=== PATIENT | female | born 1980 | race Caucasian/White ===

== ENCOUNTER → 2022-04-03 14:30 | Outpatient (BNVA) | payer OTHER, SELFPAY | PROVIDERS: PCP Internal Medicine; Visit Provider Physician Assistant | DX: S39.012A Strain of muscle, fascia and tendon of lower back, initial encounter (principal); X50.1XXA Overexertion from prolonged static or awkward postures, initial encounter | CPT/HCPCS: 72100; 99204 ==

== ENCOUNTER → 2022-04-08 09:17 | Outpatient (BNVA) | payer OTHER, SELFPAY | PROVIDERS: PCP Internal Medicine; Visit Provider Physician Assistant Medical | DX: S39.012D Strain of muscle, fascia and tendon of lower back, subsequent encounter (principal); X50.1XXA Overexertion from prolonged static or awkward postures, initial encounter | CPT/HCPCS: 99213 ==

== ENCOUNTER → 2022-04-11 08:40 | Outpatient (BNVA) | payer OTHER, SELFPAY | PROVIDERS: PCP Internal Medicine; Visit Provider Physician Assistant Medical | DX: S33.9XXA Sprain of unspecified parts of lumbar spine and pelvis, initial encounter (principal); X50.1XXA Overexertion from prolonged static or awkward postures, initial encounter; M54.17 Radiculopathy, lumbosacral region | CPT/HCPCS: 99213 ==

== ENCOUNTER → 2022-04-18 14:40 | Outpatient (BNVA) | payer OTHER, SELFPAY | PROVIDERS: PCP Internal Medicine; Visit Provider Physician Assistant Medical | DX: S33.9XXA Sprain of unspecified parts of lumbar spine and pelvis, initial encounter (principal); X50.1XXA Overexertion from prolonged static or awkward postures, initial encounter; M54.17 Radiculopathy, lumbosacral region | CPT/HCPCS: 99213 ==

== ENCOUNTER → 2022-05-14 08:32 | Outpatient (BNVA) | payer OTHER, SELFPAY | PROVIDERS: PCP Internal Medicine; Visit Provider Physician Assistant Medical | DX: S33.9XXD Sprain of unspecified parts of lumbar spine and pelvis, subsequent encounter (principal); X50.1XXD Overexertion from prolonged static or awkward postures, subsequent encounter; M53.3 Sacrococcygeal disorders, not elsewhere classified; M54.10 Radiculopathy, site unspecified | CPT/HCPCS: 99213 ==

== ENCOUNTER 2022-05-27 08:07 | Outpatient (REF) | payer OTHER, SELFPAY ==
--- NOTE | ~2022-05-27 | MR_ITS ---
EXAMINATION: MR LUMBAR SPINE WITHOUT AND WITH CONTRAST CLINICAL INFORMATION: 41-year-old with self-reported right low back pain radiating to the right buttock and anterior hip. History of fall. History of L5-S1 surgery 11/22/2020. COMPARISON: None TECHNIQUE: Multiplanar multisequence MR imaging of the lumbar spine was done prior to and following the administration of 6 mL of Gadavist. FINDINGS: CORONAL ALIGNMENT: Normal. SAGITTAL ALIGNMENT: Normal. LUMBOSACRAL JUNCTION: Normal. VERTEBRAL BODIES: Normal height. DISC SPACES AND ENDPLATES: Moderate disc space height loss at L5-S1 with disc desiccation, Schmorl's nodes and minor spondylosis. [id number] disc space height loss at L4-L5 with disc desiccation, Schmorl's nodes and minor endplate spurring. Remaining lumbar intervertebral discs demonstrate normal height and signal. There is slight disc space height loss with disc desiccation at T11-T12. SPINAL CANAL: No abnormal developmental findings. BONE MARROW: Mixed degenerative marrow signal changes noted along the endplates at L5-S1 with mild associated marrow enhancement corresponding to regions of edematous endplate change. Otherwise bone marrow signal intensity appears unremarkable. CONUS MEDULLARIS: Terminates at L1-L2. Morphology and signal is normal. No abnormal enhancement. INTRADURAL NERVE ROOTS: Within normal limits. No abnormal intradural enhancement. L5-S1: Mild concentric disc bulging is noted. There is nonspecific intradiscal T2 hyperintensity associated with intradiscal enhancement, likely postsurgical. No evidence for discitis osteomyelitis. There is enhancement of the dorsal annular fibers of the disc centrally and to the left of midline likely reflecting postoperative scarring. No recurrent disc herniations are identified and there is no definite neural impingement or spinal canal stenosis. No significant facet arthropathy or neural foraminal stenosis. L4-L5: Shallow central disc protrusion with a central enhancing transverse annular fissure with slight encroachment on the ventral dural sac. Minor facet arthrosis noted bilaterally. No significant canal or neural foraminal stenosis. T12-L1 through L3-L4: Normal disc contour. No facet arthrosis, canal or neural foraminal stenosis. PARASPINAL/RETROPERITONEAL: The paravertebral soft tissues appear unremarkable. MR/MR lumbar spine wo/w con IMPRESSION: 1. Postoperative and discogenic degenerative changes at L5-S1 without recurrent disc herniation and no significant canal or neural foraminal compromise. 2. Shallow broad-based central disc protrusion with an enhancing central annular fissure at L4-L5 and minor facet arthrosis without spinal canal or neural foraminal stenosis.
== END 2022-05-27 08:08 | disposition home or self-care (01) ==
LOC: HO.MRI 08:07
PROVIDERS: Visit Provider Internal Medicine
DX: S39.012D Strain of muscle, fascia and tendon of lower back, subsequent encounter (principal)
CPT/HCPCS: 72158; A9585

== ENCOUNTER → 2022-05-28 08:39 | Outpatient (BNVA) | payer OTHER, SELFPAY | PROVIDERS: PCP Internal Medicine; Visit Provider Physician Assistant Medical | DX: S33.9XXD Sprain of unspecified parts of lumbar spine and pelvis, subsequent encounter (principal); X50.1XXD Overexertion from prolonged static or awkward postures, subsequent encounter; M54.10 Radiculopathy, site unspecified; M53.3 Sacrococcygeal disorders, not elsewhere classified | CPT/HCPCS: 99213 ==

== ENCOUNTER → 2022-05-30 10:58 | Outpatient (BNVA) | payer OTHER, SELFPAY | PROVIDERS: PCP Internal Medicine; Visit Provider Physician Assistant Medical | DX: S33.9XXD Sprain of unspecified parts of lumbar spine and pelvis, subsequent encounter (principal); X50.1XXD Overexertion from prolonged static or awkward postures, subsequent encounter | CPT/HCPCS: 99213 ==

== ENCOUNTER → 2022-06-27 08:29 | Outpatient (BNVA) | payer OTHER, SELFPAY | PROVIDERS: PCP Internal Medicine; Visit Provider Physician Assistant Medical | DX: S39.012D Strain of muscle, fascia and tendon of lower back, subsequent encounter (principal); X50.1XXD Overexertion from prolonged static or awkward postures, subsequent encounter; M51.27 Other intervertebral disc displacement, lumbosacral region | CPT/HCPCS: 99213 ==

== ENCOUNTER 2022-06-27 16:14 | Outpatient (REF) | payer OTHER, SELFPAY ==
--- NOTE | ~2022-06-27 | XR_ITS ---
EXAMINATION: CR X-RAY PELVIS, BILATERAL HIPS AND SACROILIAC JOINTS CLINICAL INFORMATION: Pelvic pain. COMPARISON: None TECHNIQUE: A single view of the pelvis, 3 views of the sacroiliac joints and 2 views each of the bilateral hips were obtained. FINDINGS: There is no acute fracture or dislocation. The sacroiliac and hip joints are unremarkable. Mild degenerative changes are noted at the pubic symphysis. The bony pelvis is intact. The soft tissues are unremarkable. XR/XR sacroiliac joint min 3V IMPRESSION: 1. No significant degenerative changes associated with the bilateral sacroiliac and hip joints.
--- NOTE | ~2022-06-27 | XR_ITS ---
EXAMINATION: CR X-RAY PELVIS, BILATERAL HIPS AND SACROILIAC JOINTS CLINICAL INFORMATION: Pelvic pain. COMPARISON: None TECHNIQUE: A single view of the pelvis, 3 views of the sacroiliac joints and 2 views each of the bilateral hips were obtained. FINDINGS: There is no acute fracture or dislocation. The sacroiliac and hip joints are unremarkable. Mild degenerative changes are noted at the pubic symphysis. The bony pelvis is intact. The soft tissues are unremarkable. XR/XR hip BI w PEL1V IMPRESSION: 1. No significant degenerative changes associated with the bilateral sacroiliac and hip joints.
== END 2022-06-27 16:15 | disposition home or self-care (01) ==
LOC: HO.XRAY 16:14
PROVIDERS: PCP Internal Medicine; Visit Provider Nurse Practitioner Family
DX: M47.816 Spondylosis without myelopathy or radiculopathy, lumbar region (principal); M46.1 Sacroiliitis, not elsewhere classified; M53.3 Sacrococcygeal disorders, not elsewhere classified; M96.1 Postlaminectomy syndrome, not elsewhere classified
CPT/HCPCS: 72202; 73521; 99202

== ENCOUNTER 2022-07-02 09:48 | Outpatient (REF) | payer OTHER, SELFPAY ==
[2022-07-02 10:05] LABS: MANUAL DIFF FLAG NO
[2022-07-02 10:12] LABS: Basophils Percent Auto 0.5 % (0-2); Eosinophils Absolute Auto 0.1 X10*3/uL (0.0-0.4); Eosinophils Percent Auto 0.8 % (0-4); Hematocrit 38.5 % (37.0-47.0); Hemoglobin 12.7 g/dl (12.0-16.0); Imm Gran Abs Auto 0.01 X10*3/uL (0.00-0.03); Imm Gran Pct Auto 0.2 % (0.0-0.4); Lymphocytes Absolute Auto 1.8 X10*3/uL (1.2-4.9); Lymphocytes Percent Auto 27.4 % (20-40); Mean Corpuscular Hemoglobin 29.3 pg (27.0-33.0); Mean Corpuscular Volume 88.9 fL (80.0-98.0); Mean Platelet Volume 10.2 fL (9.4-12.3); Monocytes Absolute Auto 0.5 X10*3/uL (0.1-1.2); Monocytes Percent Auto 6.8 % (2-11); Neutrophils Absolute Auto 4.3 x10*3/uL (2.0-8.3); Neutrophils Percent Auto 64.3 % (45-73); Platelet Count 266 X10*3/uL (160-400); Red Blood Count 4.33 X10*6/uL (4.20-5.50); Red Cell Distribution Width 12.3 % (11.0-16.0); White Blood Count 6.6 X10*3/uL (4.8-10.8)
[2022-07-02 10:20] LABS: Blood Urea Nitrogen 13 mg/dL (9-16); Estimated Glomerular Filt Rate > 60
== END 2022-07-02 09:49 | disposition home or self-care (01) ==
LOC: HO.LAB 09:48
PROVIDERS: PCP Internal Medicine; Visit Provider Nurse Practitioner Family
DX: N94.9 Unspecified condition associated with female genital organs and menstrual cycle (principal)
CPT/HCPCS: 36415; 82565; 84520; 85025

== ENCOUNTER 2022-07-02 10:00 | Outpatient (RCR) | payer OTHER, SELFPAY ==
--- NOTE | 2022-04-16 13:11 | MHC.PT.EP ---
[facility] [place] Office [place] Office [place] Office [address] Sary Drake [address] [phone] F: [phone] F: [phone] F: [phone] F: [phone] Physical Therapy Plan of Care Date of Evaluation: Date of Surgery: November 2020 Diagnosis: lumbar strain/radiculopathy Assessment: Pt is a pleasant 41yo F who presents to PT with acute LBP. She presents to PT with current impairments in pain, decreased lumbar ROM, decreased core stability, decreased hip/glute strength, soft tissue restrictions and muscle tightness. She is TTP throughout lumbar vertebrae, R lumbar PS, QL, and glutes. She is limited functionally by prolonged sitting, transitional movements, prolonged standing, and laying flat. She is an excellent candidate for skilled PT in order to address current impairments to facilitate return to PLOF. She will be seen 2x/week for 4 weeks and will be reassessed at that time. Frequency and Duration: The patient will be seen 2x/week for 4 weeks Short Term Goals: Pt will be I with HEP to promote self management of symptoms Pt will demonstrate improvements in postural awareness throughout the day Barrel Handler Goals: Pt will tolerate standing > 30 min with minimal to no pain to assist with household tasks including cooking and laundry Pt will tolerate sitting > 30 min with proper posture with minimal to no pain Pt will demonstrate improvements in functional mobility as evidenced by statistically significant improvement in Modified Oswestry Low Back Pain Disability Questionnaire Treatment Plan: Modalities to reduce pain, spasms and effusion. Manual therapy to restore motion and function. Therapeutic exercise to improve strength and flexibility. Neuromuscular re-education for posture and balance. Therapeutic activities to return to functional activities of daily living. Electronically signed by: Nevaeh Meadows, PT, DPT Please sign and return to therapist. Thank you for your referral.
--- NOTE | 2022-07-09 13:59 | MHC.PT.DC ---
[facility] [place] Office [place] Office [place] Office [address] Sary Drake 140 [facility] [phone] F: [phone] F: [phone] F: [phone] F: [phone] Physical Therapy Discharge Report Diagnosis: lumbar strain/radiculopathy Date of Surgery: November 2020 Date of Evaluation: 04/15/22 Date of Discharge: 07/09/22 Treatments to Date: 11 Cancellations to Date: 4 No Shows to Date: Discharge Status: Improved Function Independent with HEP Discharge Summary: Pt was seen for PT from 04/15/22-07/02/22. She attended 11 PT sessions and her last attended appointment was 07/02/22. She continues to have pain with certain activities including bending and prolonged standing. Throughout her PT POC we discussed the importance of proper body mechanics and consistency of performing HEP to promote strength and endurance. Pt is I with HEP and is being D/C from skilled PT as she has reached a functional plateau. Electronically signed by: Nevaeh Meadows, PT, DPT Please sign and return to therapist. Thank you for your referral.
== END 2022-07-09 14:00 | disposition home or self-care (01) ==
LOC: HO.PT 10:00
PROVIDERS: Visit Provider Physician Assistant Medical
DX: S39.012D Strain of muscle, fascia and tendon of lower back, subsequent encounter (principal); M54.16 Radiculopathy, lumbar region
CPT/HCPCS: 97110; 97112; 97140; 97161

== ENCOUNTER 2022-07-23 14:58 | Outpatient (RCR) | payer OTHER, SELFPAY | END 2022-09-30 13:52 | disposition home or self-care (01) | LOC: HO.PT 14:58 | PROVIDERS: PCP Internal Medicine; Visit Provider Nurse Practitioner Family | DX: M96.1 Postlaminectomy syndrome, not elsewhere classified (principal); M53.3 Sacrococcygeal disorders, not elsewhere classified; M46.1 Sacroiliitis, not elsewhere classified; M47.816 Spondylosis without myelopathy or radiculopathy, lumbar region; N94.9 Unspecified condition associated with female genital organs and menstrual cycle ==

== ENCOUNTER 2022-07-26 15:41 | Outpatient (REF) | payer OTHER, SELFPAY ==
--- NOTE | ~2022-07-26 | MR_ITS ---
EXAMINATION: MR PELVIS WITHOUT AND WITH CONTRAST CLINICAL INFORMATION: Patient states pelvic pain and pressure with cramping unable to empty bladder. COMPARISON: 05/27/2022 lumbar spine MRI TECHNIQUE: Multiple routine MR sequences through the pelvis were obtained on a high-field 1.5 Britt magnet. Pre and postcontrast images were evaluated. 6 mL of Gadavist intravenous contrast was utilized without incident. FINDINGS: Uterus is anteroverted measuring 10.3 x 5.5 x 5.8 cm in size. Endometrial cavity is unremarkable for age measuring up to 0.6 cm in thickness. Junctional zone is thin and distinct. Physiologic changes seen within the adnexa. The left ovary measures 3.2 x 6 x 1.9 cm in size. The contralateral right ovary is more difficult to separate from adjacent bowel appears to measure 2.3 x 1.8 x 3.0 cm in size with a more prominent dominant 2.1 cm follicle. Trace physiologic free fluid in the dependent pelvis. Bladder is decompressed and unremarkable. Urethra and periurethral tissues unremarkable. Normal bone marrow signal. Symmetric muscle signal. MR/MR pelvis wo/w con IMPRESSION: Physiologic changes seen. No suspicious abnormality seen. Bladder is decompressed and grossly unremarkable.
== END 2022-07-26 15:42 | disposition home or self-care (01) ==
LOC: HO.MRI 15:41
PROVIDERS: Visit Provider Nurse Practitioner Family
DX: N94.9 Unspecified condition associated with female genital organs and menstrual cycle (principal); M46.1 Sacroiliitis, not elsewhere classified; M00.9 Pyogenic arthritis, unspecified
CPT/HCPCS: 72197; A9585

== ENCOUNTER → 2022-08-01 15:18 | Outpatient (BNVA) | payer OTHER, SELFPAY | PROVIDERS: PCP Internal Medicine; Visit Provider Physician Assistant Medical | DX: S39.012D Strain of muscle, fascia and tendon of lower back, subsequent encounter (principal); X50.1XXD Overexertion from prolonged static or awkward postures, subsequent encounter; M51.16 Intervertebral disc disorders with radiculopathy, lumbar region | CPT/HCPCS: 99213 ==

== ENCOUNTER → 2022-08-19 15:24 | Outpatient (BNVA) | payer OTHER, SELFPAY | PROVIDERS: PCP Internal Medicine; Visit Provider Physician Assistant Medical | DX: S33.9XXD Sprain of unspecified parts of lumbar spine and pelvis, subsequent encounter (principal); X50.1XXD Overexertion from prolonged static or awkward postures, subsequent encounter; M54.17 Radiculopathy, lumbosacral region | CPT/HCPCS: 99213 ==

== ENCOUNTER 2022-08-27 06:13 | Outpatient (REF) | payer OTHER, SELFPAY ==
--- NOTE | ~2022-08-27 | FL_ITS ---
EXAMINATION: XR FLUOROSCOPY WITH IMAGES CLINICAL INFORMATION: Right SI joint injection. COMPARISON: None. TECHNIQUE: Fluoroscopy performed by Dr. José Miguel Machuca. Fluoroscopy time: 0.1 minutes. Cumulative Dose: 2.61 mGy. DAP: 0.712 Gy-cm2. Images: 1. FINDINGS: Image demonstrates needle overlying the right sacroiliac joint with some contrast within adjacent soft tissues and probably within the right sacroiliac joint. FL/FL guidance in treatment room IMPRESSION: Intraoperative fluoroscopy for pain management procedure.
== END 2022-08-27 06:14 | disposition home or self-care (01) ==
LOC: CF 06:13
PROVIDERS: Visit Provider Anesthesiology
DX: M46.1 Sacroiliitis, not elsewhere classified (principal); M53.3 Sacrococcygeal disorders, not elsewhere classified
CPT/HCPCS: 27096; J2795; J3300

== ENCOUNTER → 2022-09-16 15:21 | Outpatient (BNVA) | payer OTHER, SELFPAY | PROVIDERS: PCP Internal Medicine; Visit Provider Physician Assistant Medical | DX: S33.9XXD Sprain of unspecified parts of lumbar spine and pelvis, subsequent encounter (principal); X50.1XXD Overexertion from prolonged static or awkward postures, subsequent encounter | CPT/HCPCS: 99213 ==

== ENCOUNTER 2022-10-01 16:05 | Outpatient (REF) | payer OTHER, SELFPAY ==
--- NOTE | ~2022-10-01 | XR_ITS ---
EXAMINATION: XR LUMBOSACRAL SPINE WITH OBLIQUES CLINICAL INFORMATION: Post laminectomy syndrome COMPARISON: Previous x-ray April 2022 TECHNIQUE: AP, flexion and extension, both oblique, and lateral views of the lumbar spine. Lateral view of the lumbosacral junction. FINDINGS: Bone alignment is normal. No fracture or dislocation. No instability on flexion-extension. Degenerative disc disease at L5-S1. Lower lumbar spine facet arthritis. No pars defect. Normal paraspinal soft tissues. XR/XR lumbar spine 6V w bending IMPRESSION: Degenerative disc disease at L5-S1 and lower lumbar spine facet arthritis.
== END 2022-10-01 16:06 | disposition home or self-care (01) ==
LOC: HO.XRAY 16:05
PROVIDERS: PCP Internal Medicine; Visit Provider Nurse Practitioner Family
DX: M47.816 Spondylosis without myelopathy or radiculopathy, lumbar region (principal); M96.1 Postlaminectomy syndrome, not elsewhere classified
CPT/HCPCS: 72114; 99212

== ENCOUNTER → 2022-10-21 15:25 | Outpatient (BNVA) | payer OTHER, SELFPAY | PROVIDERS: PCP Internal Medicine; Visit Provider Physician Assistant Medical | DX: S33.9XXD Sprain of unspecified parts of lumbar spine and pelvis, subsequent encounter (principal); X50.1XXD Overexertion from prolonged static or awkward postures, subsequent encounter | CPT/HCPCS: 99213 ==

== ENCOUNTER 2022-11-19 06:32 | Outpatient (REF) | payer OTHER, SELFPAY ==
--- NOTE | ~2022-11-19 | FL_ITS ---
EXAMINATION: XR FLUOROSCOPY WITH IMAGES CLINICAL INFORMATION: Spondylosis without myelopathy or radiculopathy, lumbar region COMPARISON: 10/01/2022 TECHNIQUE: Fluoroscopy Supervised By: Dr. Db Rosa. Fluoroscopy Time: 0.6. Cumulative Dose: 4.91 mGy. DAP: 1.34 Gycm2. Images: 6. FL/FL guidance in treatment room FINDINGS/IMPRESSION: Sequential fluoroscopic spot images show positioning of needles and contrast injection for pain management procedure.
== END 2022-11-19 06:33 | disposition home or self-care (01) ==
LOC: CF 06:32
PROVIDERS: Visit Provider Anesthesiology
DX: M96.1 Postlaminectomy syndrome, not elsewhere classified (principal); M47.816 Spondylosis without myelopathy or radiculopathy, lumbar region
CPT/HCPCS: 64493; 64494

== ENCOUNTER → 2022-11-21 10:10 | Outpatient (BNVA) | payer OTHER, SELFPAY | PROVIDERS: PCP Internal Medicine; Visit Provider Anesthesiology | DX: Z13.89 Encounter for screening for other disorder (principal) ==

== ENCOUNTER → 2022-11-26 14:28 | Outpatient (BNVA) | payer OTHER, SELFPAY | PROVIDERS: PCP Internal Medicine; Visit Provider Physician Assistant Medical | DX: M54.17 Radiculopathy, lumbosacral region (principal); M51.26 Other intervertebral disc displacement, lumbar region | CPT/HCPCS: 99213 ==

== ENCOUNTER → 2023-01-02 07:55 | Outpatient (BNVA) | payer OTHER, SELFPAY | PROVIDERS: PCP Internal Medicine; Visit Provider Physician Assistant Medical | DX: M54.17 Radiculopathy, lumbosacral region (principal); M51.26 Other intervertebral disc displacement, lumbar region | CPT/HCPCS: 99213 ==

== ENCOUNTER → 2023-02-11 14:57 | Outpatient (BNVA) | payer OTHER, SELFPAY | PROVIDERS: PCP Internal Medicine; Visit Provider Physician Assistant Medical | DX: M54.17 Radiculopathy, lumbosacral region (principal) | CPT/HCPCS: 99213 ==

== ENCOUNTER → 2023-03-06 13:39 | Outpatient (BNVA) | payer OTHER, SELFPAY | PROVIDERS: PCP Internal Medicine; Visit Provider Physician Assistant Medical | DX: S33.9XXD Sprain of unspecified parts of lumbar spine and pelvis, subsequent encounter (principal); X50.1XXD Overexertion from prolonged static or awkward postures, subsequent encounter | CPT/HCPCS: 99213 ==

== ENCOUNTER → 2023-03-18 14:11 | Outpatient (BNVA) | payer OTHER, SELFPAY | PROVIDERS: PCP Internal Medicine; Visit Provider Physician Assistant | DX: R10.2 Pelvic and perineal pain (principal) | CPT/HCPCS: 99212 ==

== ENCOUNTER → 2023-03-27 14:52 | Outpatient (BNVA) | payer OTHER, SELFPAY | PROVIDERS: PCP Internal Medicine; Visit Provider Physician Assistant Medical | DX: S33.9XXD Sprain of unspecified parts of lumbar spine and pelvis, subsequent encounter (principal); X50.1XXD Overexertion from prolonged static or awkward postures, subsequent encounter; M54.17 Radiculopathy, lumbosacral region | CPT/HCPCS: 99213 ==

== ENCOUNTER → 2023-05-01 14:43 | Outpatient (BNVA) | payer OTHER, SELFPAY | PROVIDERS: PCP Internal Medicine; Visit Provider Physician Assistant Medical | DX: S33.9XXA Sprain of unspecified parts of lumbar spine and pelvis, initial encounter (principal); X50.1XXD Overexertion from prolonged static or awkward postures, subsequent encounter | CPT/HCPCS: 99213 ==

== ENCOUNTER → 2023-06-19 09:45 | Outpatient (BNVA) | payer OTHER, SELFPAY | PROVIDERS: PCP Internal Medicine; Visit Provider Physician Assistant Medical | DX: M54.17 Radiculopathy, lumbosacral region (principal) | CPT/HCPCS: 99213 ==

== ENCOUNTER 2023-06-27 11:22 | Outpatient (AMB) | payer OTHER, SELFPAY ==
--- NOTE | 2023-06-27 11:27 | A.OFFVIS_ITS ---
Intake Vital Signs 06/27/23 11:30 Height 5 ft 6 in Weight 138 lb 2 oz BMI 22.3 BP 136/76 Blood Pressure Location Rt brachial Position Sitting Pulse 70 Pulse Source Pulse Oximeter Pulse Oximetry (%) 98 Oxygen Delivery Method Room Air Intake Visit Reasons: CONTINOUS BACK PAIN Intake Note: Pain today 02/10. 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 The foot pain is constant per patient. She also continues to endorse axial low back pain. 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 Pain interferes with her daily activities, functioning, mood, sleep and diminishes her quality of life. She reports undergoing hysterectomy in March for pelvic pain and this has been slowly healing. Patient is tearful as she reports conservative measures with activity modifications, lidocaine patches, extensive physical therapy, NSAIDs, and diagnostic injections have not improved her pain symptoms or improved her functioning. Patient also underwent Neurosurgical evaluation by Joseph MILLER who deemed patient non surgical and referred her for Orthopedic evaluation to rule out tendon injury on the lateral hip or gluteal muscle. Patient reports she was seen by Dr. Jones at [facility] who encouraged to continue her with core strengthening exercises and potential lumbar disc replacement surgery in near future. We will obtain that report for review. At this time, patient will continue with work restrictions and undergo lumbar CT scan to better evaluate her lumbar discs. Prior lumbar spine MRI showed moderate disc space height loss at L5-S1 with disc desiccation, Schmorl's nodes and minor spondylosis. [id number] disc space height loss at L4-L5 with disc desiccation, Schmorl's nodes and minor endplate spurring. Patient denies any fever, bowel or bladder incontinence, or saddle anesthesia. PRIOR 11/21/22: Patient is on the phone today to discuss the results of the bilateral diagnostic MBB L3- L4- L5. She reported that she felt no pain immediately after the injection. However she went home after the injection and she reported sleeping for 4 hours instead of staying awake and performing the movements and maneuvers which usially aggravate her chronic pain. I explained her today that we lost the validity of the diagnostic injection. Now I have to schedule her for the diagnostic #2 MBB . I will perform it with bupivacaine with addition of epinephrine. Right SIJ steroid injection on 08/27/22 Patient reports 20% pain relief for less than a week. She continues to endorse axial and right sided lower back pain, worse with lumbar extension and supine positioning. Patient also reports right lateral hip and groin discomfort. She has been followed by her ObGyn provider for vaginal bleeding for one month and underwent endometrial biopsy last Friday. Patient also reports her uterus has increased in size since last MRI imaging per her ObGyn provider. Patient denies any fever, unintentional weight loss, malaise, dizziness, numbness or tingling, weakness, radiation of pain to lower extremities, bowel or bladder incontinence, or saddle anesthesia. PRIOR: Patient presents today in the office to assess response to Right SIJ steroid injection on 08/27/[address] Machuca. Patient reports 20% pain relief for less than a week. She continues to endorse axial and right sided lower back pain, worse with lumbar extension and supine positioning. Patient also reports right lateral hip and groin discomfort. She has been followed by her ObGyn provider for vaginal bleeding for one month and underwent endometrial biopsy last Friday. Patient also reports her uterus has increased in size since last MRI imaging per her ObGyn provider. Patient denies any fever, unintentional weight loss, malaise, dizziness, numbness or tingling, weakness, radiation of pain to lower extremities, bowel or bladder incontinence, or saddle anesthesia. Past Procedures: 08/27/22: Right Therapeutic Steroid injection-20% pain relief <1 week. PRIOR: Patient presents today via telehealth encounter to discuss Pelvic MRI results. Pelvic MRI results were reviewed with patient today and noted for physiologic changes seen within the adnexa. No suspicious abnormality seen. Patient reports she has follow up with ObGYN on 09/12/22 and then plans to start Pelvic PT if cleared. Patient continues to report axial, right lower back pain that radiates to her right buttock and right lateral hip. She denies radiation to her lower extremities or numbness with tingling symptoms. Supine positioning is not tolerable due to pain. Her lumbar xray and MRI as well her previous exams were consistent with facetogenic and discogenic pain as well right sacroiliac pain components. Patient reports meloxicam has been mildly effective. She is interested to proceed with therapeutic right SIJ injection with local and consider diagnostic lumbar medial branch blocks after if SIJ injection will not be effective. PRIOR: Patient presents today via telehealth encounter to discuss recent x-ray results and medication review. Patient reports no relief of pain this meloxicam. She denies any side effects. It is patient continues to endorse right lower back pain, right buttock and hip pain there is walking or changing position from sitting to standing as well pain when getting out from the car. We reviewed her sacroiliac and hip xrays which showed no acute fracture or dislocation. The sacroiliac and hip joints are unremarkable. Mild degenerative changes are noted at the pubic symphysis. The bony pelvis is intact. Her lumbar spine xray on 04/03/22 was consistent with mild degenerative change of the L4-L5 and L5-S1 discs levels. We reviewed her most recent lumbar spine MRI at previous visit. Patient reports pubic pain and tenderness with palpation for a while which has significantly worsened after a recent twisting injury in April. She reports she has made OBGYN follow-up appointment after recent injury and will be seeing her OBGYN provider for that in September. Patient reports constant heavy pressure in her back, heaviness and bruising sensation with tenderness in the pubic symphysis area and pain during voiding and bowel movements. Patient reports using pillows between the legs duri ng the sleep which has been helpful but has not tried ice therapy for the area. She denies fever, chills, malaise, abdominal or groin pain, dizziness, numbness or tingling, weakness, bowel or bladder incontinence, or saddle anesthesia. PRIOR: Patient is a pleasant 41-year-old female who presents today for evaluation of low back pain. 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 Patient was referred to us by [employer] and this is Worker's Comp case, claim #[id number] and pillowcase cutter is Volodymyr Faulkner . At the end of April, while dealing with a difficult preschool child, patient states she fell in the classroom on her right side and developed pain in her right lower back and right buttock and hip. Initially she reports, the pain was radiating to her left thigh anteriorly but has stopped 2 days after the fall. She denies any numbness or tingling. Patient reports previous back surgery L5-S1 microdiscectomy on 11/22/[address] Almonte at [facility]. Denies previous back injections. Pain is described as aching, stabbing, sharp, shooting, and tearing sensations in the right low back and buttock this constant stiffness. Patient reports pain is interfering with his daily activities, functioning, social interactions, sleep and quality of life. She also reports shooting pain while sneezing or getting up from sitting position to standing or from lying down to getting up. Patient reports she has significant difficulty getting dressed, bending, leaning, pulling or twisting. She denies fever, chills, malaise, weight loss, abdominal or groin pain, dizziness, numbness or tingling, weakness, bowel or bladder incontinence, or saddle anesthesia. Ambulates with normal gait without assisting devices. Patient has started physical therapy and reports improved symptoms of walking and has completed 10 sessions so far. She reports no improvement of back symptoms with PT during prolonged sitting, standing, or walking or changing positions. Patient has been managing her pain is healed and ice therapy, lidocaine patches, prednisone, Tylenol, ibuprofen, and has also tried 2 different muscle relaxants which she notes significant sensitivity due to drowsiness. She denies previous chiropractic manipulation, massage, acupuncture or TENS unit. Patient reports small fiber neuropathy which has been confirmed by lumbar puncture at [facility] in a biopsy at [facility]. She was evaluated by rheumatology about 3 years ago for a question of ankylosing spondylitis. Patient also have seen the squaring shear operator at [facility] and reports that MS has been ruled out. EMG and nerve conduction studies previously done at [facility]. No results of EMG available today. Lumbar spine MRI was obtained on 05/27/2022 and showed postoperative and discogenic degenerative changes at L5-S1 without recurrent disc herniation and no significant canal or neural foraminal compromise. Shallow broad-based central disc protrusion with an enhancing central annular fissure at L4-L5 and minor facet arthrosis without spinal canal or neural foraminal stenosis. Prior to that, lumbar spine x-ray was not done but the results are not available today. No significant degenerative changes associated with the bilateral sacroiliac and hip joints per x-ray imaging obtained today. Patient has significant tenderness in the projection of right sacroiliac joint. [facility] Medical History Small fiber neuropathy Surgical History Hx of microdiscectomy (~11/22/20) Review of Systems Const All systems reviewed & are unremarkable except as noted in HPI and below Physical Exam Vital Signs: Last Vital Signs Pulse 70 06/27/23 11:30 BP 136/76 06/27/23 11:30 Pulse Ox 98 06/27/23 11:30 Oxygen Delivery Method Room Air 06/27/23 11:30 BMI result Body Mass Index 22.3 General: Appears afebrile. Alert and oriented. Mood and affect appropriate. Follows and participates in conversation appropriately. Respiratory effort is unlabored. Able to transition from sit to stand unassisted. Ambulates with bilaterally normal heel strike and toe off. Back/Spine/Pelvis Other: Lumbar extension and flexion with bending reproduce right low back and buttock pain. Reports constant pain in the sole of right foot. Demonstrates 5/5 strength of quadriceps bilaterally as well as flexion/dorsiflexion of bilateral feet against resistance. Straight leg rise with dorsiflexion reproduced right lateral hip and right buttock pain but no pain radiation below knee level. +2 patellar and achilles reflexes bilaterally. Facet loading test positive bilaterally. Judy signs, Christopher?s and Stinchfield tests are negative bilaterally. Right mild groin and lateral hip pain with external hip rotations on the right. No pain on left side of back or leg. Cervical Spine: cervical ROM normal and No Cervical spine tenderness Thoracic/Lumbar Spine: thoracic and lumbar spine normal to inspection, Thoracic/lumbar spine scar(s), Lasegue's sign negative, straight leg raise negative bilaterally, pain with thoraco-lumbar ROM, paraspinal muscle tenderness, No thoracic spinal tenderness and lumbar spinal tenderness at L4 and at L5 Pelvis: buttock tenderness (upper) on the right Sacroiliac joints: bilaterally nontender Results Reviewed Results Reviewed: MR PELVIS WITHOUT AND WITH CONTRAST 07/26/22 FINDINGS: Uterus is anteroverted measuring 10.3 x 5.5 x 5.8 cm in size. Endometrial cavity is unremarkable for age measuring up to 0.6 cm in thickness. Junctional zone is thin and distinct. Physiologic changes seen within the adnexa. The left ovary measures 3.2 x 6 x 1.9 cm in size. The contralateral right ovary is more difficult to separate from adjacent bowel appears to measure 2.3 x 1.8 x 3.0 cm in size with a more prominent dominant 2.1 cm follicle. Trace physiologic free fluid in the dependent pelvis. Bladder is decompressed and unremarkable. Urethra and periurethral tissues unremarkable. Normal bone marrow signal. Symmetric muscle signal. IMPRESSION: Physiologic changes seen. No suspicious abnormality seen. Bladder is decompressed and grossly unremarkable. CR X-RAY PELVIS, BILATERAL HIPS AND SACROILIAC JOINTS 06/27/22 FINDINGS: There is no acute fracture or dislocation. The sacroiliac and hip joints are unremarkable. Mild degenerative changes are noted at the pubic symphysis. The bony pelvis is intact. The soft tissues are unremarkable. IMPRESSION: No significant degenerative changes associated with the bilateral sacroiliac and hip joints. MR LUMBAR SPINE WITHOUT AND WITH CONTRAST 05/27/23 CLINICAL INFORMATION: 41-year-old with self-reported right low back pain radiating to the right buttock and anterior hip. History of fall. History of L5-S1 surgery 11/22/2020. COMPARISON: None TECHNIQUE: Multiplanar multisequence MR imaging of the lumbar spine was done prior to and following the administration of 6 mL of Gadavist. FINDINGS: CORONAL ALIGNMENT: Normal. SAGITTAL ALIGNMENT: Normal. LUMBOSACRAL JUNCTION: Normal. VERTEBRAL BODIES: Normal height. DISC SPACES AND ENDPLATES: Moderate disc space height loss at L5-S1 with disc desiccation, Schmorl's nodes and minor spondylosis. Vywq-af-rmflwijf disc space height loss at L4-L5 with disc desiccation, Schmorl's nodes and minor endplate spurring. Remaining lumbar intervertebral discs demonstrate normal height and signal. There is slight disc space height loss with disc desiccation at T11-T12. SPINAL CANAL: No abnormal developmental findings. BONE MARROW: Mixed degenerative marrow signal changes noted along the endplates at L5-S1 with mild associated marrow enhancement corresponding to regions of edematous endplate change. Otherwise bone marrow signal intensity appears unremarkable. CONUS MEDULLARIS: Terminates at L1-L2. Morphology and signal is normal. No abnormal enhancement. INTRADURAL NERVE ROOTS: Within normal limits. No abnormal intradural enhancement. L5-S1: Mild concentric disc bulging is noted. There is nonspecific intradiscal T2 hyperintensity associated with intradiscal enhancement, likely postsurgical. No evidence for discitis osteomyelitis. There is enhancement of the dorsal annular fibers of the disc centrally and to the left of midline likely reflecting postoperative scarring. No recurrent disc herniations are identified and there is no definite neural impingement or spinal canal stenosis. No significant facet arthropathy or neural foraminal stenosis. L4-L5: Shallow central disc protrusion with a central enhancing transverse annular fissure with slight encroachment on the ventral dural sac. Minor facet arthrosis noted bilaterally. No significant canal or neural foraminal stenosis. T12-L1 through L3-L4: Normal disc contour. No facet arthrosis, canal or neural foraminal stenosis. PARASPINAL/RETROPERITONEAL: The paravertebral soft tissues appear unremarkable. IMPRESSION: 1. Postoperative and discogenic degenerative changes at L5-S1 without recurrent disc herniation and no significant canal or neural foraminal compromise. 2. Shallow broad-based central disc protrusion with an enhancing central annular fissure at L4-L5 and minor facet arthrosis without spinal canal or neural foraminal stenosis. XR LUMBOSACRAL SPINE 04/03/22 CLINICAL INFORMATION: Twisting injury. Low back pain. Pain radiating down left leg FINDINGS: Lumbar vertebrae have normal height and alignment. No spondylolysis. There is minimal degenerative lipping at the anterior endplates of the L4-L5 and L5-S1 discs levels. Mild disc height narrowing at both of these disc levels. Sacroiliac joints are normal. IMPRESSION: 1. No acute abnormality. 2. Mild degenerative change of the L4-L5 and L5-S1 discs levels. Assessment & Plan Assessment & Plan (1) Lumbar radicular pain: Code(s): M54.16 - Radiculopathy, lumbar region (2) Discogenic lumbar pain: Code(s): M54.59 - Other low back pain (3) Lumbar spondylosis: Code(s): M47.816 - Spondylosis without myelopathy or radiculopathy, lumbar region Plan 1. Neurosurgical evaluation conducted on 03/18/23 reviewed, patient was deemed non surgical per Joseph MILLER. Patient also underwent Orthopedic evaluation at [facility] by Dr. Jones recently, we will request this evaluation for review. 2. Given ongoing low back pain with radicular symptoms to right buttock and right lateral hip without signiciant SIJ tenderness, but discogenic components, I will send patient for CT scan of lumbar spine to evaluate L4-L5 and L5-S1 discs. Prior lumbar spine MRI on 05/27/22 following her work related injury in April 03/2022 showed moderate disc space height loss at L5-S1 with disc desiccation, Schmorl's nodes and minor spondylosis. [id number] disc space height loss at L4-L5 with disc desiccation, Schmorl's nodes and minor endplate spurring. For these degenerative changes on the endplates, she might be good candidate for possible Intracept procedure. 3. Work note provided today at the end of visit to continue activity restrictions. All questions and concerns have been answered and patient verbalized aggrement with treatment plan. Follow up for CT scan results and sooner as needed. Orders: Orders CT lumbar spine wo/w IV con Today M54.16 - Radiculopathy, lumbar region, M54.59 - Other low back pain Coding Level of Care Code Est Pt Level 4 (71337) Diagnoses Lumbar radicular pain M54.16 Discogenic lumbar pain M54.59 Lumbar spondylosis M47.816
[2023-06-27 11:30] VITALS: BP 136/76; PULSE 70; O2SAT 98; BMI 22.3
== END 2023-06-27 12:05 | disposition home or self-care (01) ==
PROVIDERS: PCP Internal Medicine; Visit Provider Nurse Practitioner Family
DX: M54.16 Radiculopathy, lumbar region (principal); M54.59 Other low back pain; M47.816 Spondylosis without myelopathy or radiculopathy, lumbar region
CPT/HCPCS: 99214

== ENCOUNTER → 2023-06-27 11:22 | Outpatient (BNVA) | payer OTHER, SELFPAY | PROVIDERS: PCP Internal Medicine; Visit Provider Nurse Practitioner Family | DX: M47.26 Other spondylosis with radiculopathy, lumbar region (principal); M54.59 Other low back pain | CPT/HCPCS: 99212 ==

== ENCOUNTER 2023-07-18 16:08 | Outpatient (REF) | payer OTHER, SELFPAY ==
--- NOTE | ~2023-07-18 | CT_ITS ---
EXAMINATION: CT LUMBAR SPINE WITH/WITHOUT CONTRAST CLINICAL INFORMATION: Radiculopathy, history of L5-S1 discectomy COMPARISON: MRI lumbar spine 05/27/2022 TECHNIQUE: A multidetector CT acquisition of the lumbar spine is obtained for an following intravenous administration of 85 mL Omnipaque 350. This CT examination was performed using dose optimization techniques as appropriate, variously including the following: *Automated exposure control *Adjustment of mA and/or kV according to patient size (this includes techniques or standardized protocols for targeted exams where dose is matched to indication/reason for exam; i.e. extremities or head) *Use of iterative reconstruction technique DLP: 788.6 mGy-cm FINDINGS: Normal lumbar lordosis is preserved. No significant spondylolisthesis. Vertebral body heights are maintained. There is no suspicious osseous lesion. Redemonstrated moderate L5-S1 disc height loss with vacuum disc phenomenon and subchondral sclerosis/cystic change along the opposing endplates. Please not canal patency is not well assessed on this examination due to inherent limitations of CT without intrathecal contrast. Within these limitations, multilevel degenerative changes with level by level detail are as follows: L1-L2: No spinal canal or neural foraminal stenosis. L2-L3: Trace annular disc bulge. No spinal canal or neural foraminal stenosis. L3-L4: Trace annular disc bulge. No spinal canal or neural foraminal stenosis. L4-L5: Annular disc bulge and mild to moderate bilateral facet arthrosis with ligamentum flavum thickening. No spinal canal stenosis. Disc bulge approaches upon/abuts the traversing right greater than left L5 nerve roots in the subarticular zones. Mild right without significant left neural foraminal encroachment. Increased conspicuity/size of focal right lateral disc protrusion impressing upon the extraforaminal right L4 nerve root (image 76, series 4). L5-S1: Disc osteophyte complex with mild bilateral facet arthrosis. No spinal canal stenosis. Annular disc bulge impresses upon the traversing bilateral S1 nerve roots within the subarticular zones. Stable mild to moderate bilateral neural foraminal stenosis. No significant abnormalities of the paraspinal musculature. Limited evaluation of the intra-abdominal structures without significant abnormalities. The abdominal aorta is of normal contour and caliber. CT/CT lumbar spine wo/w IV con IMPRESSION: Mild lower lumbar spondylosis as above without significant spinal canal or neural foraminal stenosis at any level. Increased conspicuity/size of a right lateral disc protrusion impressing upon the extraforaminal right L4 nerve root. Stable mild to moderate bilateral L5-S1 neural foraminal stenosis.
[2023-07-18] MEDS: iohexoL 350 MG/ML 100 ML INFUS..BTL 85 ML IV (16:57)
== END 2023-07-18 16:09 | disposition home or self-care (01) ==
LOC: HO.CT 16:08
PROVIDERS: PCP Internal Medicine; Visit Provider Nurse Practitioner Family
DX: M54.16 Radiculopathy, lumbar region (principal); M54.59 Other low back pain
CPT/HCPCS: 72133; Q9967

== ENCOUNTER 2023-07-31 15:05 | Outpatient (AMB) | payer OTHER, SELFPAY ==
[2023-07-31 15:11] VITALS: BP 133/82; PULSE 73; O2SAT 98; BMI 22.3
--- NOTE | 2023-07-31 15:11 | A.OFFVIS_ITS ---
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 Patient continues to endorse right sided back pain with radicular symptoms into her right lower extremity. Pain wraps arounds her right side and into right lateral hip, anterior thigh and RLE laterally. She continues to reports persistent right foot and sole of right foot pain. 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 Recent CT scan results are noted below. For ongoing right low back pain with right radiculopathy, we will proceed with Right L4 and L5-S1 TFESI injections as next steps. Denies any fever, bowel or bladder incontinence, or saddle anesthesia. PRIOR: Patient presents today for follow up for low back pain with radiation into her right buttock and lateral right hip and into the sole of right foot. The foot pain is constant per patient. She also continues to endorse axial low back pain. 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 Pain interferes with her daily activities, functioning, mood, sleep and diminishes her quality of life. She reports undergoing hysterectomy in March for pelvic pain and this has been slowly healing. Patient is tearful as she reports conservative measures with activity modifications, lidocaine patches, extensive physical therapy, NSAIDs, and diagnostic injections have not improved her pain symptoms or improved her functioning. Patient also underwent Neurosurgical evaluation by Joseph MILLER who deemed patient non surgical and referred her for Orthopedic evaluation to rule out tendon injury on the lateral hip or gluteal muscle. Patient reports she was seen by Dr. Jones at [facility] who encouraged to continue her with core strengthening exercises and potential lumbar disc replacement surgery in near future. We will obtain that report for review. At this time, patient will continue with work restrictions and undergo lumbar CT scan to better evaluate her lumbar discs. Prior lumbar spine MRI showed moderate disc space height loss at L5-S1 with disc desiccation, Schmorl's nodes and minor spondylosis. Utla-ow-mcozwymp disc space height loss at L4-L5 with disc desiccation, Schmorl's nodes and minor endplate spurring. Patient denies any fever, bowel or bladder incontinence, or saddle anesthesia. PRIOR 11/21/22: Patient is on the phone today to discuss the results of the bilateral diagnostic MBB L3- L4- L5. She reported that she felt no pain immediately after the injection. However she went home after the injection and she reported sleeping for 4 hours instead of staying awake and performing the movements and maneuvers which usially aggravate her chronic pain. I explained her today that we lost the validity of the diagnostic injection. Now I have to schedule her for the diagnostic #2 MBB . I will perform it with bupivacaine with addition of epinephrine. Right SIJ steroid injection on 08/27/22 Patient reports 20% pain relief for less than a week. She continues to endorse axial and right sided lower back pain, worse with lumbar extension and supine positioning. Patient also reports right lateral hip and groin discomfort. She has been followed by her ObGyn provider for vaginal bleeding for one month and underwent endometrial biopsy last Friday. Patient also reports her uterus has increased in size since last MRI imaging per her ObGyn provider. Patient denies any fever, unintentional weight loss, malaise, dizziness, numbness or tingling, weakness, radiation of pain to lower extremities, bowel or bladder incontinence, or saddle anesthesia. PRIOR: Patient presents today in the office to assess response to Right SIJ steroid injection on 08/27/[address] Machuca. Patient reports 20% pain relief for less than a week. She continues to endorse axial and right sided lower back pain, worse with lumbar extension and supine positioning. Patient also reports right lateral hip and groin discomfort. She has been followed by her ObGyn provider for vaginal bleeding for one month and underwent endometrial biopsy last Friday. Patient also reports her uterus has increased in size since last MRI imaging per her ObGyn provider. Patient denies any fever, unintentional weight loss, malaise, dizziness, numbness or tingling, weakness, radiation of pain to lower extremities, bowel or bladder incontinence, or saddle anesthesia. Past Procedures: 08/27/22: Right Therapeutic Steroid inje ction-20% pain relief <1 week. PRIOR: Patient presents today via telehealth encounter to discuss Pelvic MRI results. Pelvic MRI results were reviewed with patient today and noted for physiologic changes seen within the adnexa. No suspicious abnormality seen. Patient reports she has follow up with ObGYN on 09/12/22 and then plans to start Pelvic PT if cleared. Patient continues to report axial, right lower back pain that radiates to her right buttock and right lateral hip. She denies radiation to her lower extremities or numbness with tingling symptoms. Supine positioning is not tolerable due to pain. Her lumbar xray and MRI as well her previous exams were consistent with facetogenic and discogenic pain as well right sacroiliac pain components. Patient reports meloxicam has been mildly effective. She is interested to proceed with therapeutic right SIJ injection with local and consider diagnostic lumbar medial branch blocks after if SIJ injection will not be effective. PRIOR: Patient presents today via telehealth encounter to discuss recent x-ray results and medication review. Patient reports no relief of pain this meloxicam. She denies any side effects. It is patient continues to endorse right lower back pain, right buttock and hip pain there is walking or changing position from sitting to standing as well pain when getting out from the car. We reviewed her sacroiliac and hip xrays which showed no acute fracture or dislocation. The sacroiliac and hip joints are unremarkable. Mild degenerative changes are noted at the pubic symphysis. The bony pelvis is intact. Her lumbar spine xray on 04/03/22 was consistent with mild degenerative change of the L4-L5 and L5-S1 discs levels. We reviewed her most recent lumbar spine MRI at previous visit. Patient reports pubic pain and tenderness with palpation for a while which has significantly worsened after a recent twisting injury in April. She reports she has made OBGYN follow-up appo intment after recent injury and will be seeing her OBGYN provider for that in September. Patient reports constant heavy pressure in her back, heaviness and bruising sensation with tenderness in the pubic symphysis area and pain during voiding and bowel movements. Patient reports using pillows between the legs during the sleep which has been helpful but has not tried ice therapy for the area. She denies fever, chills, malaise, abdominal or groin pain, dizziness, numbness or tingling, weakness, bowel or bladder incontinence, or saddle anesthesia. PRIOR: Patient is a pleasant 41-year-old female who presents today for evaluation of low back pain. 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 Patient was referred to us by [employer] and this is Worker's Comp case, claim #[id number] and protective services case worker is Volodymyr Kaushik . At the end of April, while dealing with a difficult preschool child, patient states she fell in the classroom on her right side and developed pain in her right lower back and right buttock and hip. Initially she reports, the pain was radiating to her left thigh anteriorly but has stopped 2 days after the fall. She denies any numbness or tingling. Patient reports previous back surgery L5-S1 microdiscectomy on 11/22/[address] Almonte at [facility]. Denies previous back injections. Pain is described as aching, stabbing, sharp, shooting, and tearing sensations in the right low back and buttock this constant stiffness. Patient reports pain is interfering with his daily activities, functioning, social interactions, sleep and quality of life. She also reports shooting pain while sneezing or getting up from sitting position to standing or from lying down to getting up. Patient reports she has significant difficulty getting dressed, bending, leaning, pulling or twisting. She denies fever, chills, malaise, weight loss, abdominal or groin pain, dizziness, numbness or tingling, weakness, bowel or bladder incontinence, or saddle anesthesia. Ambulates with normal gait without assisting devices. Patient has started physical therapy and reports improved symptoms of walking and has completed 10 sessions so far. She reports no improvement of back symptoms with PT during prolonged sitting, standing, or walking or changing positions. Patient has been managing her pain is healed and ice therapy, lidocaine patches, prednisone, Tylenol, ibuprofen, and has also tried 2 different muscle relaxants which she notes significant sensitivity due to drowsiness. She denies previous chiropractic manipulation, massage, acupuncture or TENS unit. Patient reports small fiber neuropathy which has been confirmed by lumbar puncture at [facility] in a biopsy at [facility]. She was evaluated by rheumatology about 3 years ago for a question of ankylosing spondylitis. Patient also have seen the railroad yard worker at [facility] and reports that MS has been ruled out. EMG and nerve conduction studies previously done at [facility]. No results of EMG available today. Lumbar spine MRI was obtained on 05/27/2022 and showed postoperative and discogenic degenerative changes at L5-S1 without recurrent disc herniation and no significant canal or neural foraminal compromise. Shallow broad-based central disc protrusion with an enhancing central annular fissure at L4-L5 and minor facet arthrosis without spinal canal or neural foraminal stenosis. Prior to that, lumbar spine x-ray was not done but the results are not available today. No significant degenerative changes associated with the bilateral sacroiliac and hip joints per x-ray imaging obtained today. Patient has significant tenderness in the projection of right sacroiliac joint. [facility] Medical History Small fiber neuropathy Surgical History Hx of microdiscectomy (~11/22/20) Review of Systems Const All systems reviewed & are unremarkable except as noted in HPI and below Physical Exam Vital Signs: Last Vital Signs Pulse 73 07/31/23 15:11 BP 133/82 07/31/23 15:11 Pulse Ox 98 07/31/23 15:11 Oxygen Delivery Method Room Air 07/31/23 15:11 BMI result Body Mass Index 22.3 General: Appears afebrile. Alert and oriented. Mood and affect appropriate. Follows and participates in conversation appropriately. Respiratory effort is unlabored. Able to transition from sit to stand unassisted. Ambulates with bilaterally normal heel strike and toe off. Back/Spine/Pelvis Other: Oswestry Low Back Pain Disability score is 23 (Moderate Disability) Limited lumbar ROM due to pain with extension and flexion with bending reproduce right low back and buttock pain. Demonstrates 5/5 strength of quadriceps bilaterally as well as flexion/dorsiflexion of bilateral feet against resistance. Straight leg rise with dorsiflexion reproduced right lateral hip and right buttock pain and sole of right foot. +1 right +2 left patellar and achilles reflexes bilaterally. Facet loading test positive bilaterally. Judy signs, Christopher?s and Stinchfield tests are equivocal on the right, negative on the left. Right mild groin and lateral hip pain with external hip rotations on the right. No pain on left side of back or leg. Cervical Spine: cervical ROM normal and No Cervical spine tenderness Thoracic/Lumbar Spine: thoracic and lumbar spine normal to inspection, T horacic/lumbar spine scar(s), Lasegue's sign positive on the right and diffuse, pain with thoraco-lumbar ROM, paraspinal muscle tenderness, No thoracic spinal tenderness and lumbar spinal tenderness at L4 and at L5 Pelvis: buttock tenderness on the right Sacroiliac joints: on the right tender to palpation and on the left nontender Results Reviewed Results Reviewed: CT LUMBAR SPINE WITH/WITHOUT CONTRAST 07/18/23 CLINICAL INFORMATION: Radiculopathy, history of L5-S1 discectomy COMPARISON: MRI lumbar spine 05/27/2022 FINDINGS: Normal lumbar lordosis is preserved. No significant spondylolisthesis. Vertebral body heights are maintained. There is no suspicious osseous lesion. Redemonstrated moderate L5-S1 disc height loss with vacuum disc phenomenon and subchondral sclerosis/cystic change along the opposing endplates. Please not canal patency is not well assessed on this examination due to inherent limitations of CT without intrathecal contrast. Within these limitations, multilevel degenerative changes with level by level detail are as follows: L1-L2: No spinal canal or neural foraminal stenosis. L2-L3: Trace annular disc bulge. No spinal canal or neural foraminal stenosis. L3-L4: Trace annular disc bulge. No spinal canal or neural foraminal stenosis. L4-L5: Annular disc bulge and mild to moderate bilateral facet arthrosis with ligamentum flavum thickening. No spinal canal stenosis. Disc bulge approaches upon/abuts the traversing right greater than left L5 nerve roots in the subarticular zones. Mild right without significant left neural foraminal encroachment. Increased conspicuity/size of focal right lateral disc protrusion impressing upon the extraforaminal right L4 nerve root (image 76, series 4). L5-S1: Disc osteophyte complex with mild bilateral facet arthrosis. No spinal canal stenosis. Annular disc bulge impresses upon the traversing bilateral S1 nerve roots within the subarticular zones. Stable mild to moderate bilateral neural foraminal stenosis. No significant abnormalities of the paraspinal musculature. Limited evaluation of the intra-abdominal structures without significant abnormalities. The abdominal aorta is of normal contour and caliber. IMPRESSION: Mild lower lumbar spondylosis as above without significant spinal canal or neural foraminal stenosis at any level. Increased conspicuity/size of a right lateral disc protrusion impressing upon the extraforaminal right L4 nerve root. Stable mild to moderate bilateral L5-S1 neural foraminal stenosis. Assessment & Plan Assessment & Plan (1) Lumbar post-laminectomy syndrome: Code(s): M96.1 - Postlaminectomy syndrome, not elsewhere classified (2) Lumbar spondylosis: Code(s): M47.816 - Spondylosis without myelopathy or radiculopathy, lumbar region (3) Sacroiliac joint pain: Code(s): M53.3 - Sacrococcygeal disorders, not elsewhere classified (4) Discogenic lumbar pain: Code(s): M54.59 - Other low back pain (5) Lumbar radicular pain: Code(s): M54.16 - Radiculopathy, lumbar region Plan Schedule Right L4 and Right L5-S1 TFESI with local and fluoroscopy for ongoing right radicular pain. All questions and concerns have been answered and patient agreed with the plan. Follow up after injections and sooner if needed. Justification for interventional therapy: ? Patient with average pain > 6/10 ? Patient has exhausted conservative therapy, NSAIDs, physical therapy and HEP ? Oswestry Low Back Pain Disability score is 23 (Moderate Disability) The risks, consequences, alternatives, and benefits of various treatment options were discussed with the patient in great detail, including conservative management, injections and procedures. Coding Level of Care Code Est Pt Level 4 (31265) Diagnoses Lumbar post-laminectomy syndrome M96.1 Lumbar spondylosis M47.816 Sacroiliac joint pain M53.3 Discogenic lumbar pain M54.59 Lumbar radicular pain M54.16
== END 2023-07-31 15:35 | disposition home or self-care (01) ==
PROVIDERS: PCP Internal Medicine; Visit Provider Nurse Practitioner Family
DX: M96.1 Postlaminectomy syndrome, not elsewhere classified (principal); M47.816 Spondylosis without myelopathy or radiculopathy, lumbar region; M53.3 Sacrococcygeal disorders, not elsewhere classified; M54.59 Other low back pain; M54.16 Radiculopathy, lumbar region
CPT/HCPCS: 99214

== ENCOUNTER → 2023-07-31 15:05 | Outpatient (BNVA) | payer OTHER, SELFPAY | PROVIDERS: PCP Internal Medicine; Visit Provider Nurse Practitioner Family | DX: M96.1 Postlaminectomy syndrome, not elsewhere classified (principal); M47.26 Other spondylosis with radiculopathy, lumbar region; M53.3 Sacrococcygeal disorders, not elsewhere classified; M54.59 Other low back pain | CPT/HCPCS: 99212 ==

== ENCOUNTER → 2023-08-04 15:00 | Outpatient (BNVA) | payer OTHER, SELFPAY | PROVIDERS: PCP Internal Medicine; Visit Provider Physician Assistant Medical | DX: S33.9XXD Sprain of unspecified parts of lumbar spine and pelvis, subsequent encounter (principal); X50.1XXD Overexertion from prolonged static or awkward postures, subsequent encounter; M54.16 Radiculopathy, lumbar region | CPT/HCPCS: 99213 ==

== ENCOUNTER 2023-08-19 07:16 | Outpatient (AMB) | payer OTHER, SELFPAY ==
[2023-08-19 07:26] VITALS: BP 134/86; PULSE 90; RESP 16; O2SAT 98; BMI 22.3
--- NOTE | 2023-08-19 07:26 | A.OFFVIS_ITS ---
Intake Vital Signs 08/19/23 07:26 08/19/23 08:22 Height 5 ft 6 in 5 ft 6 in Weight 138 lb 138 lb BMI 22.3 22.3 BP 134/86 128/70 Blood Pressure Location Rt brachial Rt brachial Position Sitting Sitting Respiration 16 16 Pulse 90 69 Pulse Source Pulse Oximeter Pulse Oximeter Pulse Oximetry (%) 98 99 Oxygen Delivery Method Room Air Room Air Comment Pre-Op post-op Intake Visit Reasons: R L4 AND L5-S1 TFESI/LOCAL Allergies anesthetics Adverse Reaction (Mild, Uncoded 08/19/23 08:24) Vomiting PFSH Medical History Small fiber neuropathy Surgical History (Updated 08/04/23 @ 15:54 by Georgiana Arroyo PA-C) Hx of hysterectomy Hx of microdiscectomy (~11/22/20) Physical Exam Vital Signs: Last Vital Signs Pulse 69 08/19/23 08:22 Resp 16 08/19/23 08:22 BP 128/70 08/19/23 08:22 Pulse Ox 99 08/19/23 08:22 Oxygen Delivery Method Room Air 08/19/23 08:22 BMI result Body Mass Index 22.3 Results Reviewed Results Reviewed: 08/19/23 07:24 Lidocaine HCl 2 % MPF [Xylocaine 2 % MPF] 5 ml .ROUTE .STK-MED ONE Triamcinolone Acetonide [Kenalog-40] 40 mg .ROUTE .STK-MED ONE iohexoL 300 MG/ML 100 ML [Omnipaque 300 MG/ML] 100 ml .ROUTE .STK-MED ONE Assessment & Plan Assessment & Plan (1) Lumbar post-laminectomy syndrome: Code(s): M96.1 - Postlaminectomy syndrome, not elsewhere classified (2) Lumbar spondylosis: Code(s): M47.816 - Spondylosis without myelopathy or radiculopathy, lumbar region (3) Sacroiliac joint pain: Code(s): M53.3 - Sacrococcygeal disorders, not elsewhere classified (4) Discogenic lumbar pain: Code(s): M54.59 - Other low back pain (5) Lumbar radicular pain: Code(s): M54.16 - Radiculopathy, lumbar region Plan: Transforaminal epidural steroid injection L5-S1 and L4-5 on the right. THE PATIENT CAME TO THE OPERATING ROOM AFTER OBTAINING INFORMED CONSENT. THE RISKS OF THE PROCEDURE WERE DELINEATED THE RISK OF BLEEDING INFECTION PERIPHERAL NERVE DAMAGE EPIDURAL HEMATOMA EPIDURAL ABSCESS AND OTHER UNSPECIFIED RISKS. THE PATIENT WAS POSITIONED PRONE ON THE OPERATING TABLE . TIME-OUT WAS OBTAINED DELINEATING CORRECT SIDE AND SITE OF THE PROCEDURE, PATIENT NAME AND DATE OF , NEED OF THE ANTIBIOTIC, RISK OF FIRE. The PATIENT PARTICIPATED IN THE TIME OUT PROCEDURE. LUMBAR AREA OF THE PATIENT WAS PREPPED WITH CHLORAPREP AND DRAPED WITH STERILE DRAPES, STERILELY DRAPED C-ARM WAS BROUGHT OVER THE OPERATING FIELD AND SQ PICTURE OF L5 VERTEBRA WAS DELINEATED ON THE SCREEN. C-ARM WAS TILTED 20? CEPHALAD AND 25 DEGREES TO THE RIGHT TO DEMONSTRATE THE MOST PROMINENT IMAGE OF THE SAP on THE RIGHT. THE LATERAL BORDER OF THE SAP PROJECTION TO THE SKIN WAS CHOSEN A STARTING POINT OF THE INJECTION. 22 GAUGE 5 IN SPINAL NEEDLE WAS INSERTED THROUGH THE SKIN AND STARTED TO ADVANCE TO THE FORAMINA IN ANTERIOR POSTERIOR, OBLIQUE AND LATERAL VIEWS IN TUNNEL VISION FASHION. WHEN ON LATERAL VIEW THE NEEDLE ENTERED THE MOST POSTERIOR AND INFERIOR PORTION OF THE FORAMINA INJECTION OF THE CONTRAST PERFORMED DELINEATING ANTERIOR EPIDURAL SPREAD OF THE CONTRAST. AFTER THAT TREATMENT SOLUTION CONTAINING 3 ML OF PRESERVATIVE-FREE LI DOCAINE 1% MIXED WITH KENALOG 40 MG WAS INJECTED INTO THE NEEDLE. UPON COMPLETION OF THE INJECTION THE NEEDLE WAS REMOVED AND STERILE DRESSING WAS APPLIED. THERE INJECTION WAS REPEATED AT THE LEVEL L4-L5 ON THE RIGHT IN THE SAME VERY FASHION ABOVE. PATIENT TOLERATED PROCEDURE WELL SHE WAS AWAKEN TAKEN OUTSIDE OF THE OPERATING ROOM TO PACU WHERE SHE RECOVERED UNEVENTFULLY. SHE WENT HOME WITHOUT IMMEDIATE COMPLICATIONS. Plan Schedule Right L4 and Right L5-S1 TFESI with local and fluoroscopy for ongoing right radicular pain. All questions and concerns have been answered and patient agreed with the plan. Follow up after injections and sooner if needed. Justification for interventional therapy: ? Patient with average pain > 6/10 ? Patient has exhausted conservative therapy, NSAIDs, physical therapy and HEP ? Oswestry Low Back Pain Disability score is 23 (Moderate Disability) The risks, consequences, alternatives, and benefits of various treatment options were discussed with the patient in great detail, including conservative management, injections and procedures. Orders: Orders FL guidance in treatment room Today M54.16 - Radiculopathy, lumbar region Coding Level of Care Code Procedure Only Diagnoses Lumbar post-laminectomy syndrome M96.1 Lumbar spondylosis M47.816 Sacroiliac joint pain M53.3 Discogenic lumbar pain M54.59 Lumbar radicular pain M54.16
[2023-08-19 08:22] VITALS: BP 128/70; PULSE 69; RESP 16; O2SAT 99; BMI 22.3
== END 2023-08-19 08:18 | disposition home or self-care (01) ==
LOC: HO.PMCPRC 07:16
PROVIDERS: PCP Internal Medicine; Visit Provider Anesthesiology
DX: M47.26 Other spondylosis with radiculopathy, lumbar region (principal); M53.3 Sacrococcygeal disorders, not elsewhere classified; M96.1 Postlaminectomy syndrome, not elsewhere classified
CPT/HCPCS: 64483; 64484

== ENCOUNTER → 2023-08-19 07:16 | Outpatient (BNVA) | payer OTHER, SELFPAY | PROVIDERS: PCP Internal Medicine; Visit Provider Anesthesiology | DX: M96.1 Postlaminectomy syndrome, not elsewhere classified (principal); M47.26 Other spondylosis with radiculopathy, lumbar region; M53.3 Sacrococcygeal disorders, not elsewhere classified; M54.59 Other low back pain | CPT/HCPCS: 64483; 64484 ==

== ENCOUNTER 2023-08-19 07:18 | Outpatient (REF) | payer OTHER, SELFPAY ==
--- NOTE | ~2023-08-19 | FL_ITS ---
EXAMINATION: XR FLUOROSCOPY WITH IMAGES CLINICAL INFORMATION: Radiculopathy, lumbar region. COMPARISON: None available. TECHNIQUE: Fluoroscopy Supervised By: Dr. José Miguel Machuca. Fluoroscopy Time: 0.7 minutes. Cumulative Dose: 4.52 mGy. DAP: 0.0786 Gycm2. Images: 2. FINDINGS: Images demonstrate needle placement and contrast injection adjacent to right lateral L4 and L5 vertebrae FL/FL guidance in treatment room IMPRESSION: Fluoroscopy guidance for pain management procedure
== END 2023-08-19 07:19 | disposition home or self-care (01) ==
LOC: CF 07:18
PROVIDERS: Visit Provider Anesthesiology
DX: M54.16 Radiculopathy, lumbar region (principal); M96.1 Postlaminectomy syndrome, not elsewhere classified; M47.816 Spondylosis without myelopathy or radiculopathy, lumbar region; M53.3 Sacrococcygeal disorders, not elsewhere classified; M54.59 Other low back pain
CPT/HCPCS: 64483; 64484; J3301; Q9967

== ENCOUNTER 2023-09-08 15:13 | Outpatient (AMB) | payer OTHER, SELFPAY ==
--- NOTE | 2023-09-08 15:25 | MHC.OFFVIS ---
Intake Vital Signs 09/08/23 15:28 Height 5 ft 6 in Weight 138 lb BMI 22.3 BP 126/80 Blood Pressure Location Lt brachial Position Sitting Respiration 14 Pulse 82 Pulse Source Pulse Oximeter Pulse Oximetry (%) 100 Oxygen Delivery Method Room Air Intake Visit Reasons: R L4 AND L5-S1 TFESI 08/19/23/confirmed Allergies anesthetics Adverse Reaction (Mild, Uncoded 08/19/23 08:24) Vomiting HPI HPI Comments History of Present Illness Details Loyda is back in my office after right L4-5 L5-S1 therapeutic epidural steroid injection transforaminal. She reports pain in the lumbar spine and sacral bone in the midline with radiation to the right. She reports that she has pain in the right foot however she is adamant that this is not connected to the pain in the back. She feels pain in the back increased but pain in the foot remains low or even non-existent. Therefore I doubt her pain can be called radiculopathy. She reports approximately 2 through 3 days of good pain relief. She reports that by the week from the procedure the pain came back. Therefore I cannot consider transforaminal ISABEL on the right a good pain relieve measure. This is not her pain generator. In the past we tried to do diagnostic medial branch block L3 L4-5 which unfortunately resulted in no conclusion because patient slept after the procedure. She received sedation for that procedure. We would need to schedule this procedure 1 more time. This time I will schedule it without anesthesia. I recommended her to apply lidocaine patches in the projection of the future injections and she receives no sedation this time. She will perform most painful maneuvers to aggravate her pain. I will evaluate her soon after the procedure. PRIOR 11/21/22: Patient is on the phone today to discuss the results of the bilateral diagnostic MBB L3- L4- L5. She reported that she felt no pain immediately after the injection. However she went home after the injection and she reported sleeping for 4 hours instead of staying awake and performing the movements and maneuvers which usially aggravate her chronic pain. I explained her today that we lost the validity of the diagnostic injection. Now I have to schedule her for the diagnostic #2 MBB . I will perform it with bupivacaine with addition of epinephrine. Right SIJ steroid injection on 08/27/22 Patient reports 20% pain relief for less than a week. She continues to endorse axial and right sided lower back pain, worse with lumbar extension and supine positioning. Patient also reports right lateral hip and groin discomfort. She has been followed by her ObGyn provider for vaginal bleeding for one month and underwent endometrial biopsy last Friday. Patient also reports her uterus has increased in size since last MRI imaging per her ObGyn provider. Patient denies any fever, unintentional weight loss, malaise, dizziness, numbness or tingling, weakness, radiation of pain to lower extremities, bowel or bladder incontinence, or saddle anesthesia. PRIOR: Patient presents today in the office to assess response to Right SIJ steroid injection on 08/27/[address] Machuca. Patient reports 20% pain relief for less than a week. She continues to endorse axial and right sided lower back pain, worse with lumbar extension and supine positioning. Patient also reports right lateral hip and groin discomfort. She has been followed by her ObGyn provider for vaginal bleeding for one month and underwent endometrial biopsy last Friday. Patient also reports her uterus has increased in size since last MRI imaging per her ObGyn provider. Patient denies any fever, unintentional weight loss, malaise, dizziness, numbness or tingling, weakness, radiation of pain to lower extremities, bowel or bladder incontinence, or saddle anesthesia. Past Procedures: 08/27/22: Right Therapeutic Steroid injection-20% pain relief <1 week. PRIOR: Patient presents today via telehealth encounter to discuss Pelvic MRI results. Pelvic MRI results were reviewed with patient today and noted for physiologic changes seen within the adnexa. No suspicious abnormality seen. Patient reports she has follow up with ObGYN on 09/12/22 and then plans to start Pelvic PT if cleared. Patient continues to report axial, right lower back pain that radiates to her right buttock and right lateral hip. She denies radiation to her lower extremities or numbness with tingling symptoms. Supine positioning is not tolerable due to pain. Her lumbar xray and MRI as well her previous exams were consistent with facetogenic and discogenic pain as well right sacroiliac pain components. Patient reports meloxicam has been mildly effective. She is interested to proceed with therapeutic right SIJ injection with local and consider diagnostic lumbar medial branch blocks after if SIJ injection will not be effective. PRIOR: Patient presents today via telehealth encounter to discuss recent x-ray results and medication review. Patient reports no relief of pain this meloxicam. She denies any side effects. It is patient continues to endorse right lower back pain, right buttock and hip pain there is walking or changing position from sitting to standing as well pain when getting out from the car. We reviewed her sacroiliac and hip xrays which showed no acute fracture or dislocation. The sacroiliac and hip joints are unremarkable. Mild degenerative changes are noted at the pubic symphysis. The bony pelvis is intact. Her lumbar spine xray on 04/03/22 was consistent with mild degenerative change of the L4-L5 and L5-S1 discs levels. We reviewed her most recent lumbar spine MRI at previous visit. Patient reports pubic pain and tenderness with palpation for a while which has significantly worsened after a recent twisting injury in April. She reports she has made OBGYN follow-up appointment after recent injury and will be seeing her OBGYN provider for that in September. Patient reports constant heavy pressure in her back, heaviness and bruising sensation with tenderness in the pubic symphysis area and pain during voiding and bowel movements. Patient reports using pillows between the legs during the sleep which has been helpful but has not tried ice therapy for the area. She denies fever, chills, malaise, abdominal or groin pain, dizziness, numbness or tingling, weakness, bowel or bladder incontinence, or saddle anesthesia. PRIOR: Patient is a pleasant 41-year-old female who presents today for evaluation of low back pain. 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 Patient was referred to us by [employer] and this is Worker's Comp case, claim #[id number] and case reviewer is Volodymyr Faulkner . At the end of April, while dealing with a difficult preschool child, patient states she fell in the classroom on her right side and developed pain in her right lower back and right buttock and hip. Initially she reports, the pain was radiating to her left thigh anteriorly but has stopped 2 days after the fall. She denies any numbness or tingling. Patient reports previous back surgery L5-S1 microdiscectomy on 11/22/[address] Almonte at [facility]. Denies previous back injections. Pain is described as aching, stabbing, sharp, shooting, and tearing sensations in the right low back and buttock this constant stiffness. Patient reports pain is interfering with his daily activities, functioning, social interactions, sleep and quality of life. She also reports shooting pain while sneezing or getting up from sitting position to standing or from lying down to getting up. Patient reports she has significant difficulty getting dressed, bending, leaning, pulling or twisting. She denies fever, chills, malaise, weight loss, abdominal or groin pain, dizziness, numbness or tingling, weakness, bowel or bladder incontinence, or saddle anesthesia. Ambulates with normal gait without assisting devices. Patient has started physical therapy and reports improved symptoms of walking and has completed 10 sessions so far. She reports no improvement of back symptoms with PT during prolonged sitting, standing, or walking or changing positions. Patient has been managing her pain is healed and ice therapy, lidocaine patches, prednisone, Tylenol, ibuprofen, and has also tried 2 different muscle relaxants which she notes significant sensitivity due to drowsiness. She denies previous chiropractic manipulation, massage, acupuncture or TENS unit. Patient reports small fiber neuropathy which has been confirmed by lumbar puncture at [facility] in a biopsy at [facility]. She was evaluated by rheumatology about 3 years ago for a question of ankylosing spondylitis. Patient also have seen the inventory control manager at [facility] and reports that MS has been ruled out. EMG and nerve conduction studies previously done at [facility]. No results of EMG available today. Lumbar spine MRI was obtained on 05/27/2022 and showed postoperative and discogenic degenerative changes at L5-S1 without recurrent disc herniation and no significant canal or neural foraminal compromise. Shallow broad-based central disc protrusion with an enhancing central annular fissure at L4-L5 and minor facet arthrosis without spinal canal or neural foraminal stenosis. Prior to that, lumbar spine x-ray was not done but the results are not available today. No significant degenerative changes associated with the bilateral sacroiliac and hip joints per x-ray imaging obtained today. Patient has significant tenderness in the projection of right sacroiliac joint. [facility] Medical History (Updated 09/08/23 @ 16:08 by José Miguel Machuca MD) Small fiber neuropathy Surgical History (Updated 08/04/23 @ 15:54 by Georgiana M May, PA-C) Hx of hysterectomy Hx of microdiscectomy (~11/22/20) Review of Systems Const All systems reviewed & are unremarkable except as noted in HPI and below ENT Reports Normal hearing present Neuro Reports Normal hearing present, Denies Abnormal speech present, Denies confusion and Denies Sensory deficit (Neuro) Psych Denies confusion Physical Exam Vital Signs: Last Vital Signs Pulse 82 09/08/23 15:28 Resp 14 09/08/23 15:28 BP 126/80 09/08/23 15:28 Pulse Ox 100 09/08/23 15:28 Oxygen Delivery Method Room Air 09/08/23 15:28 BMI result Body Mass Index 22.3 Const General: no acute distress; No confusion Orientation/consciousness: patient oriented x3 and No confusion Eyes General: appearance normal, both eyes and all related structures Pupils: Equal, round and reactive pupils present EOM: EOMs intact bilaterally Neck Neck: Yes full ROM Chest Chest palpation & inspection: normal inspection of the chest Resp Effort & Inspection: normal respiratory effort, able to speak in complete sentences, normal respiratory pattern, no audible wheezes and no cough Cardio Jugular venous distension: no JVD GI Inspection: Yes normal to inspection Back/Spine/Pelvis Other: Christopher test Gaenslen test, pelvic compression test and pelvic destruction test are all negative for sacroiliac joint pathology. Lateral rotation of the right hip negative for pain increase in the groin or in the hip. SLR is negative bilaterally. Tenderness on palpation of midline spinal region approximately at the level of L4-L5 and S1. Loading test is positive bilaterally and more on the right. Flexing forward and flexing backwards aggravates her pain. She cannot make the decision whether or not 1 of them aggravate her pain stronger than the other. She denies pelvic organ dysfunction. She denies Valsalva maneuver aggravating her pain. Neuro General: patient oriented x3, gait normal and No confusion Cranial nerves: Yes CN's II-XII intact bilaterally, Yes Equal, round and reactive pupils present, Yes Normal hearing present and Yes Ability to bilaterally elevate shoulders present Speech: No Abnormal speech present Gait exam (Neuro): Normal gait present Motor exam (neuro): 5/5 motor strength present throughout Sensory Exam: No Sensory deficit (Neuro) Extrem General: No pedal edema Psych Speech and movement: Normal speech and movement present Affect: normal affect Attitude: cooperative Thought process: Normal thought process present Thought content: Normal thought content present Insight: Good insight present (Psych) Judgement: Good judgement present (Psych) Assessment & Plan Assessment & Plan (1) Lumbar post-laminectomy syndrome: Code(s): M96.1 - Postlaminectomy syndrome, not elsewhere classified (2) Lumbar spondylosis: Code(s): M47.816 - Spondylosis without myelopathy or radiculopathy, lumbar region (3) Sacroiliac joint pain: Code(s): M53.3 - Sacrococcygeal disorders, not elsewhere classified (4) Sacroiliitis: Code(s): M46.1 - Sacroiliitis, not elsewhere classified (5) Discogenic lumbar pain: Code(s): M54.59 - Other low back pain (6) Lumbar radicular pain: Code(s): M54.16 - Radiculopathy, lumbar region (7) Spondylosis of lumbar region without myelopathy or radiculopathy: Code(s): M47.816 - Spondylosis without myelopathy or radiculopathy, lumbar region Plan Lumbar spine xray with oblique view to assess degree of degenerative changes.She slept after diagnostic MBB and now the injection is invalid as a diagnostic procedure. Transforaminal epidural steroid injection L4-5 L5-S1 on the right was not effective for pain control. I will schedule her for diagnostic 2. Medial branch block with bupivacaine and epinephrine. Will do it with help of lidocaine patch and without any sedation. Justification for interventional therapy: ? Patient with average pain > 6/10 ? Patient has exhausted conservative therapy, NSAIDs, physical therapy The risks, consequences, alternatives, and benefits of various treatment options were discussed with the patient in great detail, including conservative management, injections and procedures. Coding Level of Care Code Est Pt Level 3 (07763) Diagnoses Lumbar post-laminectomy syndrome M96.1 Lumbar spondylosis M47.816 Sacroiliac joint pain M53.3 Sacroiliitis M46.1 Discogenic lumbar pain M54.59 Lumbar radicular pain M54.16 Spondylosis of lumbar region without myelopathy or radiculopathy M47.816
[2023-09-08 15:28] VITALS: BP 126/80; PULSE 82; RESP 14; O2SAT 100; BMI 22.3
== END 2023-09-08 15:57 | disposition home or self-care (01) ==
PROVIDERS: PCP Internal Medicine; Visit Provider Anesthesiology
DX: M96.1 Postlaminectomy syndrome, not elsewhere classified (principal); M47.816 Spondylosis without myelopathy or radiculopathy, lumbar region; M53.3 Sacrococcygeal disorders, not elsewhere classified; M46.1 Sacroiliitis, not elsewhere classified; M54.59 Other low back pain; M54.16 Radiculopathy, lumbar region
CPT/HCPCS: 99214

== ENCOUNTER → 2023-09-08 15:13 | Outpatient (BNVA) | payer OTHER, SELFPAY | PROVIDERS: PCP Internal Medicine; Visit Provider Anesthesiology | DX: M96.1 Postlaminectomy syndrome, not elsewhere classified (principal); M47.26 Other spondylosis with radiculopathy, lumbar region; M54.59 Other low back pain; M53.3 Sacrococcygeal disorders, not elsewhere classified; M46.1 Sacroiliitis, not elsewhere classified | CPT/HCPCS: 99212 ==

== ENCOUNTER → 2023-09-15 14:01 | Outpatient (BNVA) | payer OTHER, SELFPAY | PROVIDERS: PCP Internal Medicine; Visit Provider Physician Assistant Medical | DX: S39.012D Strain of muscle, fascia and tendon of lower back, subsequent encounter (principal); Y04.2XXD Assault by strike against or bumped into by another person, subsequent encounter; M54.17 Radiculopathy, lumbosacral region | CPT/HCPCS: 99213 ==

== ENCOUNTER 2023-10-14 06:04 | Outpatient (REF) | payer OTHER, SELFPAY ==
--- NOTE | ~2023-10-14 | FL_ITS ---
EXAMINATION: XR FLUOROSCOPY WITH IMAGES CLINICAL INFORMATION: Spondylosis without myelopathy or radiculopathy, lumbar region. COMPARISON: None available. TECHNIQUE: Fluoroscopy Supervised By: Dr. José Miguel Machuca. Fluoroscopy Time: 0.5 minutes. Cumulative Dose: 4.48 mGy. DAP: 0.0715 Gycm2. Images: 6. FINDINGS: Images demonstrate needle placement and contrast injection adjacent to the bilateral lateral L3, L4 and L5 vertebrae FL/FL guidance in treatment room IMPRESSION: Fluoroscopic guidance for pain management procedure.
== END 2023-10-14 06:05 | disposition home or self-care (01) ==
LOC: CF 06:04
PROVIDERS: Visit Provider Anesthesiology
DX: M47.816 Spondylosis without myelopathy or radiculopathy, lumbar region (principal)
CPT/HCPCS: 64493; 64494; Q9967

== ENCOUNTER 2023-10-14 07:24 | Outpatient (AMB) | payer OTHER, SELFPAY ==
[2023-10-14 07:33] VITALS: BP 130/82; PULSE 101; RESP 18; O2SAT 99; BMI 22.3
--- NOTE | 2023-10-14 07:33 | MHC.OFFVIS ---
Intake Vital Signs 10/14/23 07:33 10/14/23 08:44 Height 5 ft 6 in 5 ft 6 in Weight 138 lb 138 lb BMI 22.3 22.3 BP 130/82 124/82 Blood Pressure Location Lt brachial Lt brachial Position Sitting Sitting Respiration 18 18 Pulse 101 H 87 Pulse Source Pulse Oximeter Pulse Oximeter Pulse Oximetry (%) 99 100 Oxygen Delivery Method Room Air Room Air Comment Pre-Op post-op Intake Visit Reasons: BILAT L3-L4-DRL5 DX MBB W/BUPI AND EPI Allergies anesthetics Adverse Reaction (Mild, Uncoded 08/19/23 08:24) Vomiting [facility] Medical History (Updated 09/08/23 @ 16:08 by José Miguel Machuca MD) Small fiber neuropathy Surgical History (Updated 08/04/23 @ 15:54 by Georgiana Arroyo PA-C) Hx of hysterectomy Hx of microdiscectomy (~11/22/20) Physical Exam Vital Signs: Last Vital Signs Pulse 87 10/14/23 08:44 Resp 18 10/14/23 08:44 BP 124/82 10/14/23 08:44 Pulse Ox 100 10/14/23 08:44 Oxygen Delivery Method Room Air 10/14/23 08:44 BMI result Body Mass Index 22.3 Assessment & Plan Assessment & Plan (1) Spondylosis of lumbar region without myelopathy or radiculopathy: Code(s): M47.816 - Spondylosis without myelopathy or radiculopathy, lumbar region Plan: Diagnostic medial branch block L3,L4 dorsal ramus L5 bilateral.? ? ?Informed consent was explained to the patient. All questions were explained and? answered.? The patient was taken inside the operating room where she was positioned prone on the operating table. Time-out was performed delineating correct site, side, the nature of the procedure, patient's allergy, . All operating room staff was participating in OR time-out procedure. ? ? The lower back was prepped with ChloraPrep and draped with sterile towels.? C-arm was brought over the operating field and sq picture of L4-, L5 vertebra and S1 AREA were delineated on the screen.? Point of interest were delineated as confluence of superior articular process of L4 and L5 vertebra bilaterally with corresponding transverse processes as well as confluence of the sacral alae bilaterally with superior articular process of S1.? The projection of the point of interest to the skin were injected with the small amount of local anesthetic lidocaine 2% 1-1.5 cc.? After that 22 gauge 3.5 inch spinal needle was driven sequentially to the points of interest in tunnel vision fashion. After needles gently contacted the bone at the point of interests the needle was injected with small amount of the contrast.? The injection of the contrast did not demonstrate any intravascular or intrathecal spread of the contrast.? After that injection of the? bupivacaine 0.75% with epi- less [id number] was performed at each needle location.? ? Upon completion of the injections? needle was? removed and sterile Band-Aids were applied.? The patient tolerated procedure very well. Orders: Orders FL guidance in treatment room 10/14/23 M47.816 - Spondylosis without myelopathy or radiculopathy, lumbar region Coding Level of Care Code Procedure Only Diagnoses Spondylosis of lumbar region without myelopathy or radiculopathy M47.816
[2023-10-14 08:44] VITALS: BP 124/82; PULSE 87; RESP 18; O2SAT 100; BMI 22.3
== END 2023-10-14 08:37 | disposition home or self-care (01) ==
LOC: HO.PMCPRC 07:24
PROVIDERS: PCP Internal Medicine; Visit Provider Anesthesiology
DX: M47.816 Spondylosis without myelopathy or radiculopathy, lumbar region (principal)
CPT/HCPCS: 64493; 64494

== ENCOUNTER 2023-10-20 15:02 | Outpatient (AMB) | payer OTHER, SELFPAY ==
--- NOTE | 2023-10-20 15:03 | MHC.OFFVIS ---
Intake Vital Signs 10/20/23 15:07 Height 5 ft 6 in Weight 133 lb BMI 21.5 BP 130/82 Blood Pressure Location Rt brachial Position Sitting Respiration 16 Pulse 72 Pulse Source Pulse Oximeter Pulse Oximetry (%) 100 Oxygen Delivery Method Room Air Intake Visit Reasons: BILAT L3-L4-DRL5 DX MBB 10/14/23/lvm Allergies anesthetics Adverse Reaction (Mild, Uncoded 08/19/23 08:24) Vomiting HPI HPI Comments History of Present Illness Details Loyda is very pleasant 43 years old female who is in my office today status post diagnostic 1. Medial branch block L2-L3 L4 does ramus L5 bilateral. The patient reports only minimal pain improvement after the procedure in the 1st 1-1/2 hours. Reports pain quickly came back to the baseline level at 2. hours after the procedure. With her attempt to perform the most painful maneuvers her pain exacerbated and became much higher than before the procedure even though the procedure was performed with bupivacaine longevity of the action of which would be at the 6 hours. Therefore cannot consider this procedure diagnostically positive for pain generator of this patient being facet joint arthritis. She previously medial branch block L3-L4 dorsal ramus L5 bilateral however she fell asleep after the procedure and the results were non conclusive. She had right L4-5 L5-S1 therapeutic epidural steroid injection transforaminal. She reported 2-3 days only of moderate pain relief after this procedure. She reports pain in the lumbar spine and sacral bone in the midline with radiation to the right posterior hip. She reports that she has pain in the right foot however she is adamant that this is not connected to the pain in the back. Last physical therapy she received in 2021 and she reported no pain relief from this procedure. She completed 12 sessions of physical therapy and continued home exercise program however without significant success. Germain 2 inhibitors and NSAIDs are not effective for her pain, patient reports no side effects on maximal doses however denies help with the pain. Prolonged and very careful discussion issued today with the history of evaluation. Today patient reported that prolonged standing and prolong sitting causes severe pain in her back. She reports that flexing forward non backwards as she previously stated causes more of a pain the back. She reports that most severe pain in the back is in the morning when she gets up from her bed and needs to flex herself forward to touch her feet or bead picker stuff from the ground. I suspected today that she has vertebra genicular pain. On the MRI of the lumbar spine she has Modic type changes which I will request to re-evaluate by Dr. Fierro however it seem to be that they are Modic type 1 and Modic type 2 changes.. Right SIJ steroid injection on 08/27/22 Patient reports 20% pain relief for less than a week. She continues to endorse axial and right sided lower back pain, worse with lumbar extension and supine positioning. Patient also reports right lateral hip and groin discomfort. She has been followed by her ObGyn provider for vaginal bleeding for one month and underwent endometrial biopsy last Friday. Patient also reports her uterus has increased in size since last MRI imaging per her ObGyn provider. Patient denies any fever, unintentional weight loss, malaise, dizziness, numbness or tingling, weakness, radiation of pain to lower extremities, bowel or bladder incontinence, or saddle anesthesia. Pelvic MRI results demonstrated physiologic changes seen within the adnexa. No suspicious abnormality seen. Patient reports she has follow up with ObGYN on 09/12/22 sacroiliac and hip xrays : showed no acute fracture or dislocation. The sacroiliac and hip joints are unremarkable. Mild degenerative changes are noted at the pubic symphysis. The bony pelvis is intact. Her lumbar spine xray on 04/03/22 was consistent with mild degenerative change of the L4-L5 and L5-S1 discs levels. PRIOR: Patient is a pleasant 41-year-old female who presents today for evaluation of low back pain. 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 Patient was referred to us by [employer] and this is Worker's Comp case, claim #[id number] and case advocate is Volodymyr Faulkner . At the end of April, while dealing with a difficult preschool child, patient states she fell in the classroom on her right side and developed pain in her right lower back and right buttock and hip. Initially she reports, the pain was radiating to her left thigh anteriorly but has stopped 2 days after the fall. She denies any numbness or tingling. Patient reports previous back surgery L5-S1 microdiscectomy on 11/22/[address] Almonte at [facility]. She reports no improvement of back symptoms with PT during prolonged sitting, standing, or walking or changing positions. Patient has been managing her pain is healed and ice therapy, lidocaine patches, prednisone, Tylenol, ibuprofen, and has also tried 2 different muscle relaxants which she notes significant sensitivity due to drowsiness. She denies previous chiropractic manipulation, massage, acupuncture or TENS unit. Patient reports small fiber neuropathy which has been confirmed by lumbar puncture at [facility] in a biopsy at [facility]. She was evaluated by rheumatology about 3 years ago for a question of ankylosing spondylitis. Patient also have seen the office electrician at [facility] and reports that multiple sclerosis has been ruled out. EMG and nerve conduction studies previously done at [facility]. Lumbar spine MRI was obtained on 05/27/2022 and showed postoperative and discogenic degenerative changes at L5-S1 without recurrent disc herniation and no significant canal or neural foraminal compromise. Shallow broad-based central disc protrusion with an enhancing central annular fissure at L4-L5 and minor facet arthrosis without spinal canal or neural foraminal stenosis. Prior to that, lumbar spine x-ray was not done but the results are not available today. No significant degenerative changes associated with the bilateral sacroiliac and hip joints per x-ray imaging obtained today. Patient has significant tenderness in the projection of right sacroiliac joint. [facility] Medical History (Updated 10/20/23 @ 16:46 by José Miguel Machuca MD) Small fiber neuropathy Surgical History (Updated 08/04/23 @ 15:54 by Georgiana Arroyo PA-C) Hx of hysterectomy Hx of microdiscectomy (~11/22/20) Review of Systems Const All systems reviewed & are unremarkable except as noted in HPI and below ENT Reports Normal hearing present Neuro Reports Normal hearing present, Denies Abnormal speech present, Denies confusion and Denies Sensory deficit (Neuro) Psych Denies confusion Physical Exam Vital Signs: Last Vital Signs Pulse 72 10/20/23 15:07 Resp 16 10/20/23 15:07 BP 130/82 10/20/23 15:07 Pulse Ox 100 10/20/23 15:07 Oxygen Delivery Method Room Air 10/20/23 15:07 BMI result Body Mass Index 21.5 Const General: no acute distress; No confusion Orientation/consciousness: patient oriented x3 and No confusion Eyes General: appearance normal, both eyes and all related structures Pupils: Equal, round and reactive pupils present EOM: EOMs intact bilaterally Neck Neck: Yes full ROM Chest Chest palpation & inspection: normal inspection of the chest Resp Effort & Inspection: normal respiratory effort, able to speak in complete sentences, normal respiratory pattern, no audible wheezes and no cough Cardio Jugular venous distension: no JVD GI Inspection: Yes normal to inspection Back/Spine/Pelvis Other: Christopher test Gaenslen test, pelvic compression test and pelvic destruction test are all negative for sacroiliac joint pathology. Lateral rotation of the right hip negative for pain increase in the groin or in the hip. SLR is negative bilaterally. Tenderness on palpation of midline spinal region approximately at the level of L4-L5 and S1. Loading test is positive bilaterally and more on the right. Flexing forward and flexing backwards aggravates her pain. She cannot make the decision whether or not 1 of them aggravate her pain stronger than the other. She denies pelvic organ dysfunction. She denies Valsalva maneuver aggravating her pain. Neuro General: patient oriented x3, gait normal and No confusion Cranial nerves: Yes CN's II-XII intact bilaterally, Yes Equal, round and reactive pupils present, Yes Normal hearing present and Yes Ability to bilaterally elevate shoulders present Speech: No Abnormal speech present Gait exam (Neuro): Normal gait present Motor exam (neuro): 5/5 motor strength present throughout Sensory Exam: No Sensory deficit (Neuro) Extrem General: No pedal edema Psych Speech and movement: Normal speech and movement present Affect: normal affect Attitude: cooperative Thought process: Normal thought process present Thought content: Normal thought content present Insight: Good insight present (Psych) Judgement: Good judgement present (Psych) Results Reviewed Results Reviewed: CT LUMBAR SPINE WITH/WITHOUT CONTRAST 07/18/23 CLINICAL INFORMATION: Radiculopathy, history of L5-S1 discectomy COMPARISON: MRI lumbar spine 05/27/2022 FINDINGS: Normal lumbar lordosis is preserved. No significant spondylolisthesis. Vertebral body heights are maintained. There is no suspicious osseous lesion. Redemonstrated moderate L5-S1 disc height loss with vacuum disc phenomenon and subchondral sclerosis/cystic change along the opposing endplates. Please not canal patency is not well assessed on this examination due to inherent limitations of CT without intrathecal contrast. Within these limitations, multilevel degenerative changes with level by level detail are as follows: L1-L2: No spinal canal or neural foraminal stenosis. L2-L3: Trace annular disc bulge. No spinal canal or neural foraminal stenosis. L3-L4: Trace annular disc bulge. No spinal canal or neural foraminal stenosis. L4-L5: Annular disc bulge and mild to moderate bilateral facet arthrosis with ligamentum flavum thickening. No spinal canal stenosis. Disc bulge approaches upon/abuts the traversing right greater than left L5 nerve roots in the subarticular zones. Mild right without significant left neural foraminal encroachment. Increased conspicuity/size of focal right lateral disc protrusion impressing upon the extraforaminal right L4 nerve root (image 76, series 4). L5-S1: Disc osteophyte complex with mild bilateral facet arthrosis. No spinal canal stenosis. Annular disc bulge impresses upon the traversing bilateral S1 nerve roots within the subarticular zones. Stable mild to moderate bilateral neural foraminal stenosis. No significant abnormalities of the paraspinal musculature. Limited evaluation of the intra-abdominal structures without significant abnormalities. The abdominal aorta is of normal contour and caliber. IMPRESSION: Mild lower lumbar spondylosis as above without significant spinal canal or neural foraminal stenosis at any level. Increased conspicuity/size of a right lateral disc protrusion impressing upon the extraforaminal right L4 nerve root. Stable mild to moderate bilateral L5-S1 neural foraminal stenosis. MR LUMBAR SPINE WITHOUT AND WITH CONTRAST 05/27/22 CLINICAL INFORMATION: 41-year-old with self-reported right low back pain radiating to the right buttock and anterior hip. History of fall. History of L5-S1 surgery 11/22/2020. TECHNIQUE: Multiplanar multisequence MR imaging of the lumbar spine was done prior to and following the administration of 6 mL of Gadavist. FINDINGS: CORONAL ALIGNMENT: Normal. SAGITTAL ALIGNMENT: Normal. LUMBOSACRAL JUNCTION: Normal. VERTEBRAL BODIES: Normal height. DISC SPACES AND ENDPLATES: Moderate disc space height loss at L5-S1 with disc desiccation, Schmorl's nodes and minor spondylosis. Sygn-yh-[id number] disc space height loss at L4-L5 with disc desiccation, Schmorl's nodes and minor endplate spurring. Remaining lumbar intervertebral discs demonstrate normal height and signal. There is slight disc space height loss with disc desiccation at T11-T12. SPINAL CANAL: No abnormal developmental findings. BONE MARROW: Mixed degenerative marrow signal changes noted along the endplates at L5-S1 with mild associated marrow enhancement corresponding to regions of edematous endplate change. Otherwise bone marrow signal intensity appears unremarkable. CONUS MEDULLARIS: Terminates at L1-L2. Morphology and signal is normal. No abnormal enhancement. INTRADURAL NERVE ROOTS: Within normal limits. No abnormal intradural enhancement. L5-S1: Mild concentric disc bulging is noted. There is nonspecific intradiscal T2 hyperintensity associated with intradiscal enhancement, likely postsurgical. No evidence for discitis osteomyelitis. There is enhancement of the dorsal annular fibers of the disc centrally and to the left of midline likely reflecting postoperative scarring. No recurrent disc herniations are identified and there is no definite neural impingement or spinal canal stenosis. No significant facet arthropathy or neural foraminal stenosis. L4-L5: Shallow central disc protrusion with a central enhancing transverse annular fissure with slight encroachment on the ventral dural sac. Minor facet arthrosis noted bilaterally. No significant canal or neural foraminal stenosis. T12-L1 through L3-L4: Normal disc contour. No facet arthrosis, canal or neural foraminal stenosis. PARASPINAL/RETROPERITONEAL: The paravertebral soft tissues appear unremarkable. IMPRESSION: 1. Postoperative and discogenic degenerative changes at L5-S1 without recurrent disc herniation and no significant canal or neural foraminal compromise. 2. Shallow broad-based central disc protrusion with an enhancing central annular fissure at L4-L5 and minor facet arthrosis without spinal canal or neural foraminal stenosis. Assessment & Plan Assessment & Plan (1) Lumbar post-laminectomy syndrome: Code(s): M96.1 - Postlaminectomy syndrome, not elsewhere classified (2) Lumbar spondylosis: Code(s): M47.816 - Spondylosis without myelopathy or radiculopathy, lumbar region (3) Sacroiliac joint pain: Code(s): M53.3 - Sacrococcygeal disorders, not elsewhere classified (4) Sacroiliitis: Code(s): M46.1 - Sacroiliitis, not elsewhere classified (5) Discogenic lumbar pain: Code(s): M54.59 - Other low back pain (6) Lumbar radicular pain: Code(s): M54.16 - Radiculopathy, lumbar region (7) Spondylosis of lumbar region without myelopathy or radiculopathy: Code(s): M47.816 - Spondylosis without myelopathy or radiculopathy, lumbar region (8) Vertebrogenic low back pain: Code(s): M54.51 - Vertebrogenic low back pain Plan: Plan This patient will be offered for PAT because she has a history of PONV and Urinary retention under general anesthesia. We may need to plan same day admission because of her anesthesia problems in the future. I will schedule this patient for radiofrequency ablation of basis vertebral nerves intercept procedure. This procedure requires general anesthesia. Risks and benefits of the procedure were carefully discussed with the patient. Bleeding infection peripheral nerve damage in headaches were explained to the patient. The patient understood the procedure and the patient understood the risks and benefits. She would like to schedule the procedure as above. Patient Instructions: I here by testify that I spent 42 minutes in conversation with this patient as well as planning her care, evaluating her previous records and notes and organizing this very note. Coding Level of Care Code Est Pt Level 5 (13864) Diagnoses Lumbar post-laminectomy syndrome M96.1 Lumbar spondylosis M47.816 Sacroiliac joint pain M53.3 Sacroiliitis M46.1 Discogenic lumbar pain M54.59 Lumbar radicular pain M54.16 Spondylosis of lumbar region without myelopathy or radiculopathy M47.816 Vertebrogenic low back pain M54.51
[2023-10-20 15:07] VITALS: BP 130/82; PULSE 72; RESP 16; O2SAT 100; BMI 21.5
== END 2023-10-20 15:51 | disposition home or self-care (01) ==
PROVIDERS: PCP Internal Medicine; Visit Provider Anesthesiology
DX: M96.1 Postlaminectomy syndrome, not elsewhere classified (principal); M47.816 Spondylosis without myelopathy or radiculopathy, lumbar region; M53.3 Sacrococcygeal disorders, not elsewhere classified; M46.1 Sacroiliitis, not elsewhere classified; M54.59 Other low back pain; M54.16 Radiculopathy, lumbar region; M54.51 Vertebrogenic low back pain
CPT/HCPCS: 99215

== ENCOUNTER → 2023-10-20 15:02 | Outpatient (BNVA) | payer OTHER, SELFPAY | PROVIDERS: PCP Internal Medicine; Visit Provider Anesthesiology | DX: M96.1 Postlaminectomy syndrome, not elsewhere classified (principal); M47.26 Other spondylosis with radiculopathy, lumbar region; M53.3 Sacrococcygeal disorders, not elsewhere classified; M46.1 Sacroiliitis, not elsewhere classified; M54.59 Other low back pain; M54.51 Vertebrogenic low back pain | CPT/HCPCS: 99212 ==

== ENCOUNTER → 2023-10-21 15:15 | Outpatient (BNVA) | payer OTHER, SELFPAY | PROVIDERS: PCP Internal Medicine; Visit Provider Physician Assistant | DX: M54.17 Radiculopathy, lumbosacral region (principal) | CPT/HCPCS: 99213 ==

== ENCOUNTER 2023-12-26 06:00 | Day surgery (SDC) | payer OTHER, SELFPAY ==
[2023-12-24 12:15] VITALS: BP 111/76; PULSE 71; RESP 20; O2SAT 99; BMI 21.3
--- NOTE | 2023-12-24 12:26 | HO.ANESPROP2 ---
Documented by User: Zoey Klein NP 12/24/23 12:45 HPI - Anesthesia Eval Consult details Narrative: 43yo F for Intracept RFA No recent illness No SOB. Brief, rare episodes of mid-sternal CP that resolves without intervention. POTS. Does not follow with cardiology. Neuro only. Small fiber neuropathy Severe PONV and post-op urinary retention: avoid scop to lessen urinary retention, will try aponvie. Previously unable to urinate >20 hours post-op. Will straight cath prior to discharge. [facility] Active Problems Active Problems: All Active Problems (Updated 12/24/23 @ 12:08 by Tracy Hernandez RN) Vertebrogenic low back pain (Acute) Spondylosis of lumbar region without myelopathy or radiculopathy (Acute) Discogenic lumbar pain (Acute) Lumbar radicular pain (Acute) Pelvic pain (Acute) Pain of female symphysis pubis (Acute) Lumbar post-laminectomy syndrome (Acute) Sacroiliac joint pain (Acute) Sacroiliitis (Acute) Lumbar spondylosis (Acute) Past Medical History Medical History (Updated 12/24/23 @ 12:08 by Tracy Hernandez RN) Anemia POTS (postural orthostatic tachycardia syndrome) Bladder retention Anesthesia complication History of lumbar puncture Lumbar post-laminectomy syndrome Small fiber neuropathy Family History Family history of problems with anesthesia: No Surgical History Surgical History (Updated 12/24/23 @ 12:09 by Tracy Hernandez RN) Hx of wisdom tooth extraction Hx of hysterectomy Hx of microdiscectomy (~11/22/20) History of Problems with Anesthesia: Yes Social History Social History Are you a primary family day carer to a significant other at home: No Do you presently have visiting nurse or other home services: No Patient Tobacco Use Status: Never used Tobacco Use of substances other than those prescribed or required for medical reasons: No Have you been hit, kicked, punched, or otherwise hurt by someone within the past year? If so, by whom?: No Are you DNR?: No Advance Directives: No Advance Directives Information Provided: Yes Advance Directives on File: No Recently lost weight without trying: No Eating poorly because of decreased appetite: No Nutrition Risks: No Nutritional Risk Patient : No (N/A) FDLMP: N/A : No Poor oral hygiene: No Meds Allergies Allergy/AdvReac Type Severity Reaction Status Date / Time dexamethasone [From Decadron] AdvReac Severe Unknown Verified 12/26/23 06:58 general anesthesia AdvReac Severe vomiting/urinary Uncoded 12/24/23 12:10 retention narcotic pain meds AdvReac Severe Vomiting Uncoded 12/24/23 12:10 Home Medications Medication Instructions Recorded Confirmed Last Taken Type L. acidophilus,casei,rhamnosus 50 1 cap PO DAILY 12/24/23 12/24/23 Unknown History billion cell capsule,delayed release (BiomePRO) lidocaine 5 % topical patch 1 patch topical DAILY PRN Pain 12/24/23 12/24/23 Unknown History magnesium oxide 200 mg PO QAM 12/24/23 12/24/23 Unknown History multivitamin 1 tab PO QAM 12/24/23 12/24/23 Unknown History Exam Height,Weight and Vital Signs: Height 5 ft 6 in Weight 59.874 kg Last Vital Signs Pulse 71 12/24/23 12:15 Resp 20 12/24/23 12:15 BP 111/76 12/24/23 12:15 Pulse Ox 99 12/24/23 12:15 O2 Del Method Room Air 12/24/23 12:15 Airway TM Dist: >3cm Neck ROM: Full Loose/Missing/Broken Teeth: No Heart: RRR Lungs: CTAB Assessment and Plan Assessment Anesthesia Assessment: Anesthesia Plan Discussed and PAT Visit Final Anesthetic Review Family History of Problems with Anesthesia: No History of Problems with Anesthesia: Yes Documented by User: Manolo Petit MD 12/26/23 07:12 [facility] Past Medical History Medical History (Updated 12/24/23 @ 12:08 by Tracy Hernandez RN) Anemia POTS (postural orthostatic tachycardia syndrome) Bladder retention Anesthesia complication History of lumbar puncture Lumbar post-laminectomy syndrome Small fiber neuropathy Surgical History Surgical History (Updated 12/24/23 @ 12:09 by Tracy Hernandez RN) Hx of wisdom tooth extraction Hx of hysterectomy Hx of microdiscectomy (~11/22/20) Social History Social History Are you a primary family day carer to a significant other at home: No Do you presently have visiting nurse or other home services: No Patient Tobacco Use Status: Never used Tobacco Use of substances other than those prescribed or required for medical reasons: No Have you been hit, kicked, punched, or otherwise hurt by someone within the past year? If so, by whom?: No Are you DNR?: No Advance Directives: No Advance Directives Information Provided: Yes Advance Directives on File: No Recently lost weight without trying: No Eating poorly because of decreased appetite: No Nutrition Risks: No Nutritional Risk Patient : No (N/A) FDLMP: N/A : No Poor oral hygiene: No Meds Allergies Allergy/AdvReac Type Severity Reaction Status Date / Time dexamethasone [From Decadron] AdvReac Severe Unknown Verified 12/26/23 06:58 general anesthesia AdvReac Severe vomiting/urinary Uncoded 12/24/23 12:10 retention narcotic pain meds AdvReac Severe Vomiting Uncoded 12/24/23 12:10 Home Medications Medication Instructions Recorded Confirmed Last Taken Type L. acidophilus,casei,rhamnosus 50 1 cap PO DAILY 12/24/23 12/24/23 Unknown History billion cell capsule,delayed release (BiomePRO) lidocaine 5 % topical patch 1 patch topical DAILY PRN Pain 12/24/23 12/24/23 Unknown History magnesium oxide 200 mg PO QAM 12/24/23 12/24/23 Unknown History multivitamin 1 tab PO QAM 12/24/23 12/24/23 Unknown History Exam Airway Mallampati Class: I TM Dist: >3cm Assessment and Plan Final Anesthetic Review NPO: Yes ASA Class: II Final Preanesthetic Review: No Changes in Pt Med Stat, Meds/Allgs Chart Reviewed, Consent Obtained/Reviewed and Anes Risks/Benef Reviewed Patient Risk: Intermediate Procedure Risk: Low Anesthetic Plan Anesthetic Plan: GA Disposition: Standard PACU
[2023-12-26] VITALS (7 sets, daily range): BP systolic 104–116; BP diastolic 56–82; PULSE 66–90; RESP 10–18; TEMP 36.1–37.2; O2SAT 99–100; BMI 21.6
--- NOTE | ~2023-12-26 | FL_ITS ---
EXAMINATION: XR FLUOROSCOPY WITH IMAGES CLINICAL INFORMATION: Low back pain COMPARISON: None available. TECHNIQUE: Fluoroscopy Supervised By: Dr. berrios. Fluoroscopy Time: 2.2 minutes. Cumulative Dose: 49.2 mGy. DAP: 12.1 Gycm2. Images: 2. FINDINGS: There are 2 digital AP images obtained of lumbar spine with posterior probes positioned posterior L4 and to S1 vertebra. There is a lateral image obtained previously which reveals posterior probes overlying the L4 and L5 vertebral body. FL/FL guidance in OR IMPRESSION: Fluoroscopy guidance was provided to referring physician for pain management.
[2023-12-26] MEDS: Lactated Ringers 1,000 ML 100 ML IVCONT (06:45)
[2023-12-26] MEDS: Aprepitant 32 MG/4.4 ML VIAL IVPUSH (06:45)
[2023-12-26] MEDS: dexAMETHasone sod phosphate 4 MG/ML VIAL IVPUSH (06:49)
--- NOTE | 2023-12-26 06:54 | PC.NURSE ---
WHEN ADMINISTERING DECADRON PATIENT FELT BURNING INH ER BILATERAL ARM PITS AND HER VAGINAL AREA THEN THE FEELING WNET AWAY. NO SOB OR RESP DISTRESS. NO HIVES OR REDNESS TO FACE OR BODY. CONT TO MONITOR.
--- NOTE | 2023-12-26 07:25 | MHC.SHP ---
Pre-Procedural Eval Section A - 24 Hr Update-Section A only Date of Service: 12/26/23 The patient is an INPATIENT: No Changes since office visit: Yes Patient answered all questions The patient has been examined within 24 hours of the surgical procedure. The History & Physical has been completed within 30 days and I have reviewed it.: No Section B - Complete if H&P > 30 days Chief Complaint: Vertebrogenic low back pain Details of Present Illness: as above Relevant Family History (Specify if Yes): No Relevant Social History: None Medical History: No relevant PMH History of Previous Operations: No relevant previous surgery Allergies: Allergies Allergy/AdvReac Type Severity Reaction Status Date / Time dexamethasone [From Decadron] AdvReac Severe Unknown Verified 12/26/23 06:58 general anesthesia AdvReac Severe vomiting/urinary Uncoded 12/24/23 12:10 retention narcotic pain meds AdvReac Severe Vomiting Uncoded 12/24/23 12:10 Review of Systems Sugical H&P ROS: Negative: Constitution, Cardiovascular, Respiratory, Neurological, Psychiatric, Hem-Onc, Allergic/Immunologic, Gastrointestinal, Genitourinary, Musculoskeletal, Integumentary, Endocrine and Eyes/Ears/Nose/Throat Exam Surgical H&P Exam: Normal: HEENT, Normal: Heart, Normal: Lungs, Normal: Extremities, Normal: Abdomen, Normal: Skin and Normal: Neurological Plan Diagnosis/Plan: Unchanged I have reviewed the history and physical and performed a pertinent physical examination on my patient. No changes have occurred unless specified. Time Spent With Patient Time: Total time managing care of this patient today ____ minutes.
--- NOTE | 2023-12-26 10:31 | PM.OP ---
Brief Operative Note Date of Service: 12/26/23 Pre-op diagnosis: Basivertebral nerve pain Post-op diagnosis: same Procedure: Intracept L4-L5 and S1 radiofrequency ablation. Surgeon: José Miguel Machuca MD Anesthesia: GETA Was an [employer] used for this Procedure?: No Estimated blood loss (mL): 35 Pathology: none sent Condition: stable Disposition: PACU
--- NOTE | 2023-12-26 10:34 | P.OP_ITS ---
Operative Note Operative Note Date of Service: 12/26/23 Narrative: Procedure: Basivertebral nerve (BVN) ablation? Intracept Procedure S1, L5 and L3 Indications for Procedure:? Loyda is very pleasant 43 years old lady who is suffering from axial low back pain exacerbated by forward flexing, prolong sitting, prolonged standing, walking.?The pain is without the radiation into the lower extremities.? Prior to that the patient received multiple injections to treat axial back pain -l however those injections were not effective for control of her pain.? She was sent to MRI and ?attention was attracted to Modic type changes: at the above mentioned vertebrae and she was offered Intracept procedure, she came today to the operating room to receive the procedure.? Informed consent was obtained delineating risk of bleeding, infection, including osteomyelitis of the bertebral bodies, peripheral nerve damage , damage to spinal canal with CSF leak , post dural puncture headache.? The patient came to the operating room ?and position supine on the stretcher, [employer] monitors were applied and patient was induced with general endotracheal anesthesia. After that patient was transferred on the operating table prone all pressure points were protected. Procedure Time Out: Patient ID confirmed, correct procedure to be performed, correct site and/or side for procedure , need for antibiotic administration, need for DVT prophylaxis, risk of fire.? The patient received cefazolin 2 g intravenously 30 minutes before onset of the procedure as well as dexamethasone 4 mg intravenously push. The entire back was sterilely prepped with ChloraPrep twice and draped with sterile self adhesive utility towels and covered with full body drape.? Two sterilely draped C-arms were positioned in fixed anterior posterior and lateral positions alongside the patient's torso.? Sterilely draped C-arm was moved to visualize the target at the superolateral aspect of the L4 vertebral body. The C-arm was rotated to square off the superior endplate at L4 and rotated right to obtain an oblique view. The superolateral ?right L4 pedicle was identified, and the skin entry point identified and infiltrated with mixture of 2% lidocaine with ropivacaine 0.5% one to one using a 25- gauge 1-1/2 inch needle. A 22-gauge 5-inch spinal needle was used to anesthetize the track to the pedicle and periosteum and confirm the introducer cannula trajectory. A skin incision was made with 11 blade scalpel5 mm. The introducer cannula with bevel tip was then introduced through the skin, subcutaneous tissue and paraspinal muscle until bony contact was made. The position was checked in the AP and lateral plane. Using a mallet, the trocar was then advanced through the pedicle to the posterior aspect of the vertebral body using a combination of AP and lateral views to ensure appropriate traversing of the pedicle and no breaching of the pedicle medially or inferiorly. Once the trocar was in the posterior aspect of the L4 vertebral body, the trocar was removed from the cannula and the curved cannula assembly with the nitinol J- stylet was inserted. The spin wheel was rotated counterclockwise permitting excu rsion of the J-stylet. The curved cannula assembly was then advanced using a mallet in 1-2 mm increments. The J-stylet was observed to traverse the vertebral body in the AP and lateral views. Target was reached when the tip of the stylet was 45 % anterior of the posterior wall of the L4 in the lateral view (midway between the superior and inferior endplates) and it crossed the midline of the L4 spinous process in the AP view. The stylet was then removed. The bipolar radiofrequency (RF) probe was removed from the previous vertebral body, the tip cleaned and was inserted into the introducer cannula in its ablation position. The spin wheel was rotated clockwise to retract the PEEK sleeve to expose the proximal electrode on the radiofrequency probe. The BVN was then ablated using [employer]?s standard RFG algorithm for 7 minutes.? While the ablation was occurring at below level the C-arm was moved to visualize the target at the superolateral aspect of the L5 vertebral body using the appr oach similar to the L4 vertebral body this time on the left side. The C-arm was rotated to square off the superior endplate at L5 and rotated left to obtain an oblique view. The superolateral ?left L 5 pedicle was identified, and the skin entry point identified and infiltrated with mixture of 2% lidocaine with ropivacaine 0.5% one to one using a 25- gauge 1-1/2 inch needle. A 22-gauge 5- inch spinal needle was used to anesthetize the track to the pedicle and periosteum and confirm the introducer cannula trajectory. A skin incision was made with 10 scalpel blade 5 mm. The introducer cannula with bevel tip was then introduced through the skin, subcutaneous tissue and paraspinal muscle until bony contact was made. The position was checked in the AP and lateral plane. Using a mallet, the trocar was then advanced through the pedicle to the posterior aspect of the vertebral body using a combination of AP and lateral views to ensure appropriate traversing of the pedicle and no breaching of the pedicle medially or inferiorly. Once the trocar was in the posterior aspect of the L5 vertebral body, the trocar was removed from the cannula and the curved cannula assembly with the nitinol J-stylet was inserted. The spin wheel was rotated counterclockwise permitting excursion of the J-stylet. The curved cannula assembly was then advanced using a mallet in 1-2 mm increments. The J- stylet was observed to traverse the vertebral body in the AP and lateral views. Target was reached when the tip of the stylet was 45 % anterior of the posterior wall of the L5 in the lateral view (midway between the superior and inferior endplates) and it crossed the midline of the L5 spinous process in the AP view. The stylet was then removed. The bipolar radiofrequency (RF) probe was removed from the previous vertebral body, the tip cleaned and was inserted into the introducer cannula in its ablation position. The spin wheel was rotated clockwise to retract the PEEK sleeve to expose the proximal electrode on the radiofrequency probe. The BVN was then ablated using [employer]?s standard RFG algorithm for 7 minutes. While the ablation was occurring at the above level, C-arm were moved to visualize the target at the superolateral aspect of S1. The C-arm was rotated to a Yang view to square off the superior endplate at S1. The C-arm was then rotated to the right approximately 15-20 degrees for an approach to the right S1 pedicle. The skin entry point was identified and infiltrated with mixture of 2% lidocaine with ropivacaine 0.5% 1 to 1 4 cc. A 22-gauge 5-inch spinal needle was used to anesthetize the track to the? pedicle and periosteum and confirm the introducer cannula trajectory. A small horizontal 5 mm skin incision was made with 10 scalpel blade. The introducer cannula with bevel tip was then introduced through the skin, subcutaneous tissue and paraspinal muscle until bony contact was made. The position was checked in the AP and lateral plane. Using a mallet, the trocar was then advanced through the pedicle to the posterior aspect of the vertebral body using a combination of AP and lateral views to ensure appropriate traversing of the pedicle and no breaching of the pedicle medially. Once the trocar was in the posterior aspect of the S1 vertebral body, the trocar was removed from the cannula and the curved cannula assembly with the nitinol J- stylet was inserted. The spin wheel was rotated counterclockwise permitting excursion of the J-stylet. The curved cannula assembly was then advanced using a mallet in 1-2 mm increments. The J-stylet was observed to traverse the vertebral body in the midline in both the AP and lateral views. The J-stylet was removed and replaced with the straight stylet to reach the BVN target. Target was reached when the tip of the stylet was noted to be approximately 50% anterior of the posterior wall of the S1 in the lateral view, 40% inferior from the superior endplate and it crossed the midline of the S1 spinous process in the AP view. The stylet was then removed. The bipolar radiofrequency (RF) probe was ?inserted into the introducer cannula. The spin wheel was rotated clockwise to retract the PEEK sleeve to expose the proximal electrode on the radiofrequency probe. The BVN was then ablated using [employer]?s standard RFG algorithm for 15 minutes. Upon completion of the procedure the instruments were removed from the patient, single silk 0-0 suture were applied to the each patient's 3 small incisions. Sterile dressing with bacitracin applied. The patient was awaken, extubated, taken outside of the operating room to rec overy room where she recovered uneventfully.
== END 2023-12-26 12:10 | disposition home or self-care (01) ==
PROVIDERS: PCP Internal Medicine; Visit Provider Anesthesiology
PROC: (CPT 64628; principal; 2023-12-26 07:30)
DX: M54.51 Vertebrogenic low back pain (principal); G60.8 Other hereditary and idiopathic neuropathies; Z88.8 Allergy status to other drugs, medicaments and biological substances; Z98.890 Other specified postprocedural states; M47.816 Spondylosis without myelopathy or radiculopathy, lumbar region; M96.1 Postlaminectomy syndrome, not elsewhere classified; M53.3 Sacrococcygeal disorders, not elsewhere classified
CPT/HCPCS: 64628; 64629; C1889; C9145; J0131; J0690; J1100; J2250; J2405; J2704; J2795

== ENCOUNTER → 2023-12-26 06:00 | Outpatient (BNV) | payer OTHER, SELFPAY | PROVIDERS: PCP Internal Medicine; Visit Provider Anesthesiology | DX: M54.51 Vertebrogenic low back pain (principal) | CPT/HCPCS: 64628; 64629 ==

== ENCOUNTER 2024-01-01 08:56 | Outpatient (AMB) | payer OTHER, SELFPAY ==
--- NOTE | 2024-01-01 09:08 | A.OFFVIS_ITS ---
Intake Vital Signs 01/01/24 09:36 Height 5 ft 6 in Weight 134 lb BMI 21.6 BP 132/78 Blood Pressure Location Lt brachial Position Sitting Respiration 12 Pulse 70 Pulse Source Pulse Oximeter Pulse Oximetry (%) 100 Oxygen Delivery Method Room Air Intake Visit Reasons: S/p L4-L5-S1 BVN 12/26/23/ confirm Intake Note: Patient comes in for post-op appointment. Reports pain 12/13. Allergies dexamethasone [From Decadron] Adverse Reaction (Severe, Verified 01/01/24 09:36) Unknown general anesthesia Adverse Reaction (Severe, Uncoded 12/24/23 12:10) vomiting/urinary retention narcotic pain meds Adverse Reaction (Severe, Uncoded 12/24/23 12:10) Vomiting HPI HPI Comments History of Present Illness Details Loyda is back in my office after BVN RFA In[facility] on 12/26/2023. It is only 6 days after the procedure and she already reports no pain when she is standing sitting and bending forward. She reports minor discomfort in the lower back when she lies down. Most likely this is a different pain generator. The patient was given a note with explanation of the limitation of the activities after the procedure. 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 If she needs to receive any notes about her activities or job light duties they will be provided for her. The patient's dressing was removed, prepped with ChloraPrep and sterile dressing was applied. The wounds are healing well and sutures will be removed next week. Prior: very pleasant 43 years old female who is in my office today status post diagnostic 1. Medial branch block L2-L3 L4 does ramus L5 bilateral. The patient reports only minimal pain improvement after the procedure in the 1st 1-1/2 hours. Reports pain quickly came back to the baseline level at 2. hours after the procedure. With her attempt to perform the most painful maneuvers her pain exacerbated and became much higher than before the procedure even though the procedure was performed with bupivacaine longevity of the action of which would be at the 6 hours. Therefore cannot consider this procedure diagnostically positive for pain generator of this patient being facet joint arthritis. She previously medial branch block L3-L4 dorsal ramus L5 bilateral however she fell asleep after the procedure and the results were non conclusive. She had right L4-5 L5-S1 therapeutic epidural steroid injection transforaminal. She reported 2-3 days only of moderate pain relief after this procedure. She reports pain in the lumbar spine and sacral bone in the midline with radiation to the right posterior hip. She reports that she has pain in the right foot however she is adamant that this is not connected to the pain in the back. Last physical therapy she received in 2021 and she reported no pain relief from this procedure. She completed 12 sessions of physical therapy and continued home exercise program however without significant success. Germain 2 inhibitors and NSAIDs are not effective for her pain, patient reports no side effects on maximal doses however denies help with the pain. Prolonged and very careful discussion issued today with the history of evaluation. Today patient reported that prolonged standing and prolong sitting causes severe pain in her back. She reports that flexing forward non backwards as she previously stated causes more of a pain the back. She reports that most severe pain in the back is in the morning when she gets up from her bed and needs to flex herself forward to touch her feet or fruit picker stuff from the ground. I suspected today that she has vertebra genicular pain. On the MRI of the lumbar spine she has Modic type changes which I will request to re-evaluate by Dr. Fierro however it seem to be that they are Modic type 1 and Modic type 2 changes.. Right SIJ steroid injection on 08/27/22 Patient reports 20% pain relief for less than a week. She continues to endorse axial and right sided lower back pain, worse with lumbar extension and supine positioning. Patient also reports right lateral hip and groin discomfort. She has been followed by her ObGyn provider for vaginal bleeding for one month and underwent endometrial biopsy last Friday. Patient also reports her uterus has increased in size since last MRI imaging per her ObGyn provider. Patient denies any fever, unintentional weight loss, malaise, dizziness, numbness or tingling, weakness, radiation of pain to lower extremities, bowel or bladder incontinence, or saddle anesthesia. Pelvic MRI results demonstrated physiologic changes seen within the adnexa. No suspicious abnormality seen. Patient reports she has follow up with ObGYN on 09/12/22 sacroiliac and hip xrays : showed no acute fracture or dislocation. The sacroiliac and hip joints are unremarkable. Mild degenerative changes are noted at the pubic symphysis. The bony pelvis is intact. Her lumbar spine xray on 04/03/22 was consistent with mild degenerative change of the L4-L5 and L5-S1 discs levels. PRIOR: Patient is a pleasant 41-year-old female who presents today for evaluation of low back pain. 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 Patient was referred to us by [employer] and this is Worker's Comp case, claim #[id number] and human services case manager is Volodymyr Yangard . At the end of April, while dealing with a difficult preschool child, patient states she fell in the classroom on her right side and developed pain in her right lower back and right buttock and hip. Initially she reports, the pain was radiating to her left thigh anteriorly but has stopped 2 days after the fall. She denies any numbness or tingling. Patient reports previous back surgery L5-S1 microdiscectomy on 11/22/[address] Almonte at [facility]. She reports no improvement of back symptoms with PT during prolonged sitting, standing, or walking or changing positions. Patient has been managing her pain is healed and ice therapy, lidocaine patches, prednisone, Tylenol, ibuprofen, and has also tried 2 different muscle relaxants which she notes significant sensitivity due to drowsiness. She denies previous chiropractic manipulation, massage, acupuncture or TENS unit. Patient reports small fiber neuropathy which has been confirmed by lumbar puncture at [facility] in a biopsy at [facility]. She was evaluated by rheumatology about 3 years ago for a question of ankylosing spondylitis. Patient also have seen the attending pathologist at [facility] and reports that multiple sclerosis has been ruled out. EMG and nerve conduction studies previously done at [facility]. Lumbar spine MRI was obtained on 05/27/2022 and showed postoperative and discogenic degenerative changes at L5-S1 without recurrent disc herniation and no significant canal or neural foraminal compromise. Shallow broad-based central disc protrusion with an enhancing central annular fissure at L4-L5 and minor facet arthrosis without spinal canal or neural foraminal stenosis. Prior to that, lumbar spine x-ray was not done but the results are not available today. No significant degenerative changes associated with the bilateral sacroiliac and hip joints per x-ray imaging obtained today. Patient has significant tenderness in the projection of right sacroiliac joint. [facility] Medical History (Updated 12/24/23 @ 12:08 by Tracy Hernandez RN) Anemia POTS (postural orthostatic tachycardia syndrome) Bladder retention Anesthesia complication History of lumbar puncture Lumbar post-laminectomy syndrome Small fiber neuropathy Surgical History (Updated 12/24/23 @ 12:09 by Tracy Hernandez RN) Hx of wisdom tooth extraction Hx of hysterectomy Hx of microdiscectomy (~11/22/20) Social History Are you a primary care management assistant to a significant other at home: No Do you presently have visiting nurse or other home services: No Patient Tobacco Use Status: Never used Tobacco Review of Systems Const All systems reviewed & are unremarkable except as noted in HPI and below ENT Reports Normal hearing present Neuro Reports Normal hearing present, Denies Abnormal speech present, Denies confusion and Denies Sensory deficit (Neuro) Psych Denies confusion Physical Exam Vital Signs: Last Vital Signs Pulse 70 01/01/24 09:36 Resp 12 01/01/24 09:36 BP 132/78 01/01/24 09:36 Pulse Ox 100 01/01/24 09:36 Oxygen Delivery Method Room Air 01/01/24 09:36 BMI result Body Mass Index 21.6 Const General: no acute distress; No confusion Orientation/consciousness: patient oriented x3 and No confusion Eyes General: appearance normal, both eyes and all related structures Pupils: Equal, round and reactive pupils present EOM: EOMs intact bilaterally Neck Neck: Yes full ROM Chest Chest palpation & inspection: normal inspection of the chest Resp Effort & Inspection: normal respiratory effort, able to speak in complete sentences, normal respiratory pattern, no audible wheezes and no cough Cardio Jugular venous distension: no JVD GI Inspection: Yes normal to inspection Back/Spine/Pelvis Other: Christopher test Gaenslen test, pelvic compression test and pelvic destruction test are all negative for sacroiliac joint pathology. Lateral rotation of the right hip negative for pain increase in the groin or in the hip. SLR is negative bilaterally. Tenderness on palpation of midline spinal region approximately at the level of L4-L5 and S1. Loading test is positive bilaterally and more on the right. Flexing forward and flexing backwards aggravates her pain. She cannot make the decision whether or not 1 of them aggravate her pain stronger than the other. She denies pelvic organ dysfunction. She denies Valsalva maneuver aggravating her pain. Neuro General: patient oriented x3, gait normal and No confusion Cranial nerves: Yes CN's II-XII intact bilaterally, Yes Equal, round and reactive pupils present, Yes Normal hearing present and Yes Ability to bilaterally elevate shoulders present Speech: No Abnormal speech present Gait exam (Neuro): Normal gait present Motor exam (neuro): 5/5 motor strength present throughout Sensory Exam: No Sensory deficit (Neuro) Extrem General: No pedal edema Psych Speech and movement: Normal speech and movement present Affect: normal affect Attitude: cooperative Thought process: Normal thought process present Thought content: Normal thought content present Insight: Good insight present (Psych) Judgement: Good judgement present (Psych) Results Reviewed Results Reviewed: CT LUMBAR SPINE WITH/WITHOUT CONTRAST 07/18/23 CLINICAL INFORMATION: Radiculopathy, history of L5-S1 discectomy COMPARISON: MRI lumbar spine 05/27/2022 FINDINGS: Normal lumbar lordosis is preserved. No significant spondylolisthesis. Vertebral body heights are maintained. There is no suspicious osseous lesion. Redemonstrated moderate L5-S1 disc height loss with vacuum disc phenomenon and subchondral sclerosis/cystic change along the opposing endplates. Please not canal patency is not well assessed on this examination due to inherent limitations of CT without intrathecal contrast. Within these limitations, multilevel degenerative changes with level by level detail are as follows: L1-L2: No spinal canal or neural foraminal stenosis. L2-L3: Trace annular disc bulge. No spinal canal or neural foraminal stenosis. L3-L4: Trace annular disc bulge. No spinal canal or neural foraminal stenosis. L4-L5: Annular disc bulge and mild to moderate bilateral facet arthrosis with ligamentum flavum thickening. No spinal canal stenosis. Disc bulge approaches upon/abuts the traversing right greater than left L5 nerve roots in the subarticular zones. Mild right without significant left neural foraminal encroachment. Increased conspicuity/size of focal right lateral disc protrusion impressing upon the extraforaminal right L4 nerve root (image 76, series 4). L5-S1: Disc osteophyte complex with mild bilateral facet arthrosis. No spinal canal stenosis. Annular disc bulge impresses upon the traversing bilateral S1 nerve roots within the subarticular zones. Stable mild to moderate bilateral neural foraminal stenosis. No significant abnormalities of the paraspinal musculature. Limited evaluation of the intra-abdominal structures without significant abnormalities. The abdominal aorta is of normal contour and caliber. IMPRESSION: Mild lower lumbar spondylosis as above without significant spinal canal or neural foraminal stenosis at any level. Increased conspicuity/size of a right lateral disc protrusion impressing upon the extraforaminal right L4 nerve root. Stable mild to moderate bilateral L5-S1 neural foraminal stenosis. MR LUMBAR SPINE WITHOUT AND WITH CONTRAST 05/27/22 CLINICAL INFORMATION: 41-year-old with self-reported right low back pain radiating to the right buttock and anterior hip. History of fall. History of L5-S1 surgery 11/22/2020. TECHNIQUE: Multiplanar multisequence MR imaging of the lumbar spine was done prior to and following the administration of 6 mL of Gadavist. FINDINGS: CORONAL ALIGNMENT: Normal. SAGITTAL ALIGNMENT: Normal. LUMBOSACRAL JUNCTION: Normal. VERTEBRAL BODIES: Normal height. DISC SPACES AND ENDPLATES: Moderate disc space height loss at L5-S1 with disc desiccation, Schmorl's nodes and minor spondylosis. [id number] disc space height loss at L4-L5 with disc desiccation, Schmorl's nodes and minor endplate spurring. Remaining lumbar intervertebral discs demonstrate normal height and signal. There is slight disc space height loss with disc desiccation at T11-T12. SPINAL CANAL: No abnormal developmental findings. BONE MARROW: Mixed degenerative marrow signal changes noted along the endplates at L5-S1 with mild associated marrow enhancement corresponding to regions of edematous endplate change. Otherwise bone marrow signal intensity appears unremarkable. CONUS MEDULLARIS: Terminates at L1-L2. Morphology and signal is normal. No abnormal enhancement. INTRADURAL NERVE ROOTS: Within normal limits. No abnormal intradural enhancement. L5-S1: Mild concentric disc bulging is noted. There is nonspecific intradiscal T2 hyperintensity associated with intradiscal enhancement, likely postsurgical. No evidence for discitis osteomyelitis. There is enhancement of the dorsal annular fibers of the disc centrally and to the left of midline likely reflecting postoperative scarring. No recurrent disc herniations are identified and there is no definite neural impingement or spinal canal stenosis. No significant facet arthropathy or neural foraminal stenosis. L4-L5: Shallow central disc protrusion with a central enhancing transverse annular fissure with slight encroachment on the ventral dural sac. Minor facet arthrosis noted bilaterally. No significant canal or neural foraminal stenosis. T12-L1 through L3-L4: Normal disc contour. No facet arthrosis, canal or neural foraminal stenosis. PARASPINAL/RETROPERITONEAL: The paravertebral soft tissues appear unremarkable. IMPRESSION: 1. Postoperative and discogenic degenerative changes at L5-S1 without recurrent disc herniation and no significant canal or neural foraminal compromise. 2. Shallow broad-based central disc protrusion with an enhancing central annular fissure at L4-L5 and minor facet arthrosis without spinal canal or neural foraminal stenosis. Assessment & Plan Assessment & Plan (1) Lumbar post-laminectomy syndrome: Code(s): M96.1 - Postlaminectomy syndrome, not elsewhere classified (2) Lumbar spondylosis: Code(s): M47.816 - Spondylosis without myelopathy or radiculopathy, lumbar region (3) Sacroiliac joint pain: Code(s): M53.3 - Sacrococcygeal disorders, not elsewhere classified (4) Sacroiliitis: Code(s): M46.1 - Sacroiliitis, not elsewhere classified (5) Discogenic lumbar pain: Code(s): M54.59 - Other low back pain (6) Lumbar radicular pain: Code(s): M54.16 - Radiculopathy, lumbar region (7) Spondylosis of lumbar region without myelopathy or radiculopathy: Code(s): M47.816 - Spondylosis without myelopathy or radiculopathy, lumbar region (8) Vertebrogenic low back pain: Code(s): M54.51 - Vertebrogenic low back pain Plan: Plan Good results of BVN RFA The patient will be scheduled for suture removal next week. She reports pain in the lower back when she is flat in bed. This pain is mild. Most likely different pain generators. She needs to abstain from heavy lifting for 6-8 weeks from now. If her job will be able to provide her light duties she may attend work. Otherwise she needs to stay off of work. Patient Instructions: Detailed instructions were given to the patient and careful explanations were given to her for the next 32 minutes. This time also included evaluation of prior records and organizing this note. Coding Level of Care Code Est Pt Level 3 (25341) Diagnoses Lumbar post-laminectomy syndrome M96.1 Lumbar spondylosis M47.816 Sacroiliac joint pain M53.3 Sacroiliitis M46.1 Discogenic lumbar pain M54.59 Lumbar radicular pain M54.16 Spondylosis of lumbar region without myelopathy or radiculopathy M47.816 Vertebrogenic low back pain M54.51
[2024-01-01 09:36] VITALS: BP 132/78; PULSE 70; RESP 12; O2SAT 100; BMI 21.6
== END 2024-01-01 09:24 | disposition home or self-care (01) ==
PROVIDERS: PCP Internal Medicine; Visit Provider Anesthesiology
DX: M96.1 Postlaminectomy syndrome, not elsewhere classified (principal); M47.816 Spondylosis without myelopathy or radiculopathy, lumbar region; M53.3 Sacrococcygeal disorders, not elsewhere classified; M46.1 Sacroiliitis, not elsewhere classified; M54.59 Other low back pain; M54.16 Radiculopathy, lumbar region; M54.51 Vertebrogenic low back pain
CPT/HCPCS: 99024

== ENCOUNTER → 2024-01-01 08:56 | Outpatient (BNVA) | payer OTHER, SELFPAY | PROVIDERS: PCP Internal Medicine; Visit Provider Anesthesiology | DX: M96.1 Postlaminectomy syndrome, not elsewhere classified (principal); M47.26 Other spondylosis with radiculopathy, lumbar region; M53.3 Sacrococcygeal disorders, not elsewhere classified; M46.1 Sacroiliitis, not elsewhere classified; M54.59 Other low back pain; M54.51 Vertebrogenic low back pain | CPT/HCPCS: 99212 ==

== ENCOUNTER 2024-01-08 09:46 | Outpatient (AMB) | payer OTHER, SELFPAY ==
--- NOTE | 2024-01-08 09:46 | A.OFFVIS_ITS ---
Intake Vital Signs 01/08/24 10:14 Height 5 ft 6 in Weight 134 lb BMI 21.6 BP 130/66 Blood Pressure Location Lt brachial Position Sitting Respiration 16 Pulse 65 Pulse Source Pulse Oximeter Pulse Oximetry (%) 100 Oxygen Delivery Method Room Air Intake Visit Reasons: REMOVAL OF SUTURES Intake Note: Reports pain 12/13. Allergies dexamethasone [From Decadron] Adverse Reaction (Severe, Verified 01/08/24 10:15) Unknown general anesthesia Adverse Reaction (Severe, Uncoded 12/24/23 12:10) vomiting/urinary retention narcotic pain meds Adverse Reaction (Severe, Uncoded 12/24/23 12:10) Vomiting HPI HPI Comments History of Present Illness Details Loyda is back in my office after BVN RFA Intracept on 12/26/2023. She reports no pain when she is standing sitting and bending forward. She reports minor discomfort in the lower back from incisions. The patient was given a note with explanation of the limitation of the activities after the procedure. 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 If she needs to receive any notes about her activities or job light duties they will be provided for her. The patient's dressing was removed, prepped with ChloraPrep, sutures were removed and sterile dressing was applied. No redness no swelling no pathological discharge no tenderness on palpation on the incision lines. Explanations were given about mobility daily activities and returned to work. Prior: very pleasant 43 years old female who is in my office today status post diagnostic 1. Medial branch block L2-L3 L4 does ramus L5 bilateral. The patient reports only minimal pain improvement after the procedure in the 1st 1-1/2 hours. Reports pain quickly came back to the baseline level at 2. hours after the procedure. With her attempt to perform the most painful maneuvers her pain exacerbated and became much higher than before the procedure even though the procedure was performed with bupivacaine longevity of the action of which would be at the 6 hours. Therefore cannot consider this procedure diagnostically positive for pain generator of this patient being facet joint arthritis. She previously medial branch block L3-L4 dorsal ramus L5 bilateral however she fell asleep after the procedure and the results were non conclusive. She had right L4-5 L5-S1 therapeutic epidural steroid injection transforaminal. She reported 2-3 days only of moderate pain relief after this procedure. She reports pain in the lumbar spine and sacral bone in the midline with radiation to the right posterior hip. She reports that she has pain in the right foot however she is adamant that this is not connected to the pain in the back. Last physical therapy she received in 2021 and she reported no pain relief from this procedure. She completed 12 sessions of physical therapy and continued home exercise program however without significant success. Germain 2 inhibitors and NSAIDs are not effective for her pain, patient reports no side effects on maximal doses however denies help with the pain. Prolonged and very careful discussion issued today with the history of evaluation. Today patient reported that prolonged standing and prolong sitting causes severe pain in her back. She reports that flexing forward non backwards as she previously stated causes more of a pain the back. 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 I suspected today that she has vertebra genicular pain. On the MRI of the lumbar spine she has Modic type changes which I will request to re-evaluate by Dr. Fierro however it seem to be that they are Modic type 1 and Modic type 2 changes.. Right SIJ steroid injection on 08/27/22 Patient reports 20% pain relief for less than a week. She continues to endorse axial and right sided lower back pain, worse with lumbar extension and supine positioning. Patient also reports right lateral hip and groin discomfort. She has been followed by her ObGyn provider for vaginal bleeding for one month and underwent endometrial biopsy last Friday. Patient also reports her uterus has increased in size since last MRI imaging per her ObGyn provider. Patient denies any fever, unintentional weight loss, malaise, dizziness, numbness or tingling, weakness, radiation of pain to lower extremities, bowel or bladder incontinence, or saddle anesthesia. Pelvic MRI results demonstrated physiologic changes seen within the adnexa. No suspicious abnormality seen. Patient reports she has follow up with ObGYN on 09/12/22 sacroiliac and hip xrays : showed no acute fracture or dislocation. The sacroiliac and hip joints are unremarkable. Mild degenerative changes are noted at the pubic symphysis. The bony pelvis is intact. Her lumbar spine xray on 04/03/22 was consistent with mild degenerative change of the L4-L5 and L5-S1 discs levels. PRIOR: Patient is a pleasant 41-year-old female who presents today for evaluation of low back pain. 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 Patient was referred to us by [employer] and this is Worker's Comp case, claim #[id number] and case reviewer is Volodymyr Faulkner . At the end of April, while dealing with a difficult preschool child, patient states she fell in the classroom on her right side and developed pain in her right lower back and right buttock and hip. Initially she reports, the pain was radiating to her left thigh anteriorly but has stopped 2 days after the fall. She denies any numbness or tingling. Patient reports previous back surgery L5-S1 microdiscectomy on 11/22/[address] Almonte at [facility]. She reports no improvement of back symptoms with PT during prolonged sitting, standing, or walking or changing positions. Patient has been managing her pain is healed and ice therapy, lidocaine patches, prednisone, Tylenol, ibuprofen, and has also tried 2 different muscle relaxants which she notes significant sensitivity due to drowsiness. She denies previous chiropractic manipulation, massage, acupuncture or TENS unit. Patient reports small fiber neuropathy which has been confirmed by lumbar puncture at [facility] in a biopsy at [facility]. She was evaluated by rheumatology about 3 years ago for a question of ankylosing spondylitis. Patient also have seen the architect at [facility] and reports that multiple sclerosis has been ruled out. EMG and nerve conduction studies previously done at [facility]. Lumbar spine MRI was obtained on 05/27/2022 and showed postoperative and discogenic degenerative changes at L5-S1 without recurrent disc herniation and no significant canal or neural foraminal compromise. Shallow broad-based central disc protrusion with an enhancing central annular fissure at L4-L5 and minor facet arthrosis without spinal canal or neural foraminal stenosis. Prior to that, lumbar spine x-ray was not done but the results are not available today. No significant degenerative changes associated with the bilateral sacroiliac and hip joints per x-ray imaging obtained today. Patient has significant tenderness in the projection of right sacroiliac joint. [facility] Medical History (Updated 12/24/23 @ 12:08 by Tracy Hernandez RN) Anemia POTS (postural orthostatic tachycardia syndrome) Bladder retention Anesthesia complication History of lumbar puncture Lumbar post-laminectomy syndrome Small fiber neuropathy Surgical History (Updated 12/24/23 @ 12:09 by Tracy Hernandez RN) Hx of wisdom tooth extraction Hx of hysterectomy Hx of microdiscectomy (~11/22/20) Social History Are you a primary urgent care physician to a significant other at home: No Do you presently have visiting nurse or other home services: No Patient Tobacco Use Status: Never used Tobacco Review of Systems Const All systems reviewed & are unremarkable except as noted in HPI and below ENT Reports Normal hearing present Neuro Reports Normal hearing present, Denies Abnormal speech present, Denies confusion and Denies Sensory deficit (Neuro) Psych Denies confusion Physical Exam Vital Signs: Last Vital Signs Pulse 65 01/08/24 10:14 Resp 16 01/08/24 10:14 BP 130/66 01/08/24 10:14 Pulse Ox 100 01/08/24 10:14 Oxygen Delivery Method Room Air 01/08/24 10:14 BMI result Body Mass Index 21.6 Const General: no acute distress; No confusion Orientation/consciousness: patient oriented x3 and No confusion Eyes General: appearance normal, both eyes and all related structures Pupils: Equal, round and reactive pupils present EOM: EOMs intact bilaterally Neck Neck: Yes full ROM Chest Chest palpation & inspection: normal inspection of the chest Resp Effort & Inspection: normal respiratory effort, able to speak in complete sentences, normal respiratory pattern, no audible wheezes and no cough Cardio Jugular venous distension: no JVD GI Inspection: Yes normal to inspection Back/Spine/Pelvis Other: Christopher test Gaenslen test, pelvic compression test and pelvic destruction test are all negative for sacroiliac joint pathology. Lateral rotation of the right hip negative for pain increase in the groin or in the hip. SLR is negative bilaterally. Tenderness on palpation of midline spinal region approximately at the level of L4-L5 and S1. Loading test is positive bilaterally and more on the right. Flexing forward and flexing backwards aggravates her pain. She cannot make the decision whether or not 1 of them aggravate her pain stronger than the other. She denies pelvic organ dysfunction. She denies Valsalva maneuver aggravating her pain. Neuro General: patient oriented x3, gait normal and No confusion Cranial nerves: Yes CN's II-XII intact bilaterally, Yes Equal, round and reactive pupils present, Yes Normal hearing present and Yes Ability to bilaterally elevate shoulders present Speech: No Abnormal speech present Gait exam (Neuro): Normal gait present Motor exam (neuro): 5/5 motor strength present throughout Sensory Exam: No Sensory deficit (Neuro) Extrem General: No pedal edema Psych Speech and movement: Normal speech and movement present Affect: normal affect Attitude: cooperative Thought process: Normal thought process present Thought content: Normal thought content present Insight: Good insight present (Psych) Judgement: Good judgement present (Psych) Assessment & Plan Assessment & Plan (1) Lumbar post-laminectomy syndrome: Code(s): M96.1 - Postlaminectomy syndrome, not elsewhere classified (2) Lumbar spondylosis: Code(s): M47.816 - Spondylosis without myelopathy or radiculopathy, lumbar region (3) Sacroiliac joint pain: Code(s): M53.3 - Sacrococcygeal disorders, not elsewhere classified (4) Sacroiliitis: Code(s): M46.1 - Sacroiliitis, not elsewhere classified (5) Discogenic lumbar pain: Code(s): M54.59 - Other low back pain (6) Lumbar radicular pain: Code(s): M54.16 - Radiculopathy, lumbar region (7) Spondylosis of lumbar region without myelopathy or radiculopathy: Code(s): M47.816 - Spondylosis without myelopathy or radiculopathy, lumbar region (8) Vertebrogenic low back pain: Code(s): M54.51 - Vertebrogenic low back pain Plan: Plan Good results of BVN RFA Sutures removed today. Patient reports only minor discomfort in the back from the incisions no other discomfort she states bother her. Limitations were explained to her. Tentatively return to work is March 01. No new appointment. Coding Level of Care Code Est Pt Level 3 (22752) Diagnoses Lumbar post-laminectomy syndrome M96.1 Lumbar spondylosis M47.816 Sacroiliac joint pain M53.3 Sacroiliitis M46.1 Discogenic lumbar pain M54.59 Lumbar radicular pain M54.16 Spondylosis of lumbar region without myelopathy or radiculopathy M47.816 Vertebrogenic low back pain M54.51
[2024-01-08 10:14] VITALS: BP 130/66; PULSE 65; RESP 16; O2SAT 100; BMI 21.6
== END 2024-01-08 10:04 | disposition home or self-care (01) ==
PROVIDERS: PCP Internal Medicine; Visit Provider Anesthesiology
DX: M96.1 Postlaminectomy syndrome, not elsewhere classified (principal); M47.816 Spondylosis without myelopathy or radiculopathy, lumbar region; M53.3 Sacrococcygeal disorders, not elsewhere classified; M46.1 Sacroiliitis, not elsewhere classified; M54.59 Other low back pain; M54.16 Radiculopathy, lumbar region; M54.51 Vertebrogenic low back pain
CPT/HCPCS: 99213

== ENCOUNTER → 2024-01-08 09:46 | Outpatient (BNVA) | payer OTHER, SELFPAY | PROVIDERS: PCP Internal Medicine; Visit Provider Anesthesiology | DX: Z48.02 Encounter for removal of sutures (principal); M47.26 Other spondylosis with radiculopathy, lumbar region; M96.1 Postlaminectomy syndrome, not elsewhere classified; M53.3 Sacrococcygeal disorders, not elsewhere classified; M46.1 Sacroiliitis, not elsewhere classified; M54.59 Other low back pain; M54.51 Vertebrogenic low back pain | CPT/HCPCS: 99212 ==

== ENCOUNTER 2024-01-19 15:28 | Outpatient (AMB) | payer OTHER, SELFPAY ==
--- NOTE | 2024-01-19 15:28 | A.OFFVIS_ITS ---
Intake Intake Visit Reasons: RETURNING PAIN Allergies dexamethasone [From Decadron] Adverse Reaction (Severe, Verified 01/19/24 15:28) Unknown general anesthesia Adverse Reaction (Severe, Uncoded 12/24/23 12:10) vomiting/urinary retention narcotic pain meds Adverse Reaction (Severe, Uncoded 12/24/23 12:10) Vomiting HPI HPI Comments History of Present Illness Details Loyda is on the phone today to discuss return of her pain. She reports increasing discomfort with positioned herself supine and during the nighttime. She reports her pain 4 to 5/10 which is twice as bad as it was 2 weeks after the procedure. Several possible explanations could come up with -this complaint exacerbation. First of all we need to rule out infection/osteomyelitis. I will send this patient for CBC as soon as possible, she reported to me today 01/19/2024 that she will be able to go for the CBC blood drawn only tomorrow morning. I told her tomorrow morning is okay but not later than that. I also will schedule her for another CBC on 01/26/2024 to see the change of the WBC dynamics. A dressing more chronic reasons for her pain her last MRI was done in 2021. If her pain continues to increase we probably should repeat the MRI now. Also she reported to me that she took NSAIDs for her pain. I told her that this is not a good idea to take NSAIDs at this time. I told her to start on tramadol which I will prescribe to her today. I will see her in my office in 1 week unless something acute will come up more urgently. Prior: BVN RFA Intracept on 12/26/2023. Immediately after procedure no pain when she is standing sitting and bending forward. Only minor discomfort in the lower back from incisions. The patient was given a note with explanation of the limitation of the activities after the procedure. 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 If she needs to receive any notes about her activities or job light duties they will be provided for her. The patient's dressing was removed, prepped with ChloraPrep, sutures were removed and sterile dressing was applied. No redness no swelling no pathological discharge no tenderness on palpation on the incision lines. Explanations were given about mobility daily activities and returned to work. Prior: very pleasant 43 years old female who is in my office today status post diagnostic 1. Medial branch block L2-L3 L4 does ramus L5 bilateral. The patient reports only minimal pain improvement after the procedure in the 1st 1-1/2 hours . Reports pain quickly came back to the baseline level at 2. hours after the procedure. With her attempt to perform the most painful maneuvers her pain exacerbated and became much higher than before the procedure even though the procedure was performed with bupivacaine longevity of the action of which would be at the 6 hours. Therefore cannot consider this procedure diagnostically positive for pain generator of this patient being facet joint arthritis. She previously medial branch block L3-L4 dorsal ramus L5 bilateral however she fell asleep after the procedure and the results were non conclusive. She had right L4-5 L5-S1 therapeutic epidural steroid injection transforaminal. She reported 2-3 days only of moderate pain relief after this procedure. She reports pain in the lumbar spine and sacral bone in the midline with radiation to the right posterior hip. She reports that she has pain in the right foot however she is adamant that this is not connected to the pain in the back. Last physical therapy she received in 2021 and she reported no pain relief from this procedure. She completed 12 sessions of physical therapy and continued home exercise program however without significant success. Germain 2 inhibitors and NSAIDs are not effective for her pain, patient reports no side effects on maximal doses however denies help with the pain. Prolonged and very careful discussion issued today with the history of evaluation. Today patient reported that prolonged standing and prolong sitting causes severe pain in her back. She reports that flexing forward non backwards as she previously stated causes more of a pain the back. 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 I suspected today that she has vertebra genicular pain. On the MRI of the lumbar spine she has Modic type changes which I will request to re-evaluate by Dr. Fierro however it seem to be that they are Modic type 1 and Modic type 2 changes.. Right SIJ steroid injection on 08/27/22 Patient reports 20% pain relief for less than a week. She continues to endorse axial and right sided lower back pain, worse with lumbar extension and supine positioning. Patient also reports right lateral hip and groin discomfort. She has been followed by her ObGyn provider for vaginal bleeding for one month and underwent endometrial biopsy last Friday. Patient also reports her uterus has increased in size since last MRI imaging per her ObGyn provider. Patient denies any fever, unintentional weight loss, malaise, dizziness, numbness or tingling, weakness, radiation of pain to lower extremities, bowel or bladder incontinence, or saddle anesthesia. Pelvic MRI results demonstrated physiologic changes seen within the adnexa. No suspicious abnormality seen. Patient reports she has follow up with ObGYN on 09/12/22 sacroiliac and hip xrays : showed no acute fracture or dislocation. The sacroiliac and hip joints are unremarkable. Mild degenerative changes are noted at the pubic symphysis. The bony pelvis is intact. Her lumbar spine xray on 04/03/22 was consistent with mild degenerative change of the L4-L5 and L5-S1 discs levels. PRIOR: Patient is a pleasant 41-year-old female who presents today for evaluation of low back pain. 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 Patient was referred to us by [employer] and this is Worker's Comp case, claim #[id number] and hospice case manager is Volodymyr Faulkner . At the end of April, while dealing with a difficult preschool child, patient states she fell in the classroom on her right side and developed pain in her right lower back and right buttock and hip. Initially she reports, the pain was radiating to her left thigh anteriorly but has stopped 2 days after the fall. She denies any numbness or tingling. Patient reports previous back surgery L5-S1 microdiscectomy on 11/22/[address] Almonte at [facility]. She reports no improvement of back symptoms with PT during prolonged sitting, standing, or walking or changing positions. Patient has been managing her pain is healed and ice therapy, lidocaine patches, prednisone, Tylenol, ibuprofen, and has also tried 2 different muscle relaxants which she notes significant sensitivity due to drowsiness. She denies previous chiropractic manipulation, massage, acupuncture or TENS unit. Patient reports small fiber neuropathy which has been confirmed by lumbar puncture at [facility] in a biopsy at [facility]. She was evaluated by rheumatology about 3 years ago for a question of ankylosing spondylitis. Patient also have seen the endoscopy nurse at [facility] and re ports that multiple sclerosis has been ruled out. EMG and nerve conduction studies previously done at [facility]. Lumbar spine MRI was obtained on 05/27/2022 and showed postoperative and discogenic degenerative changes at L5-S1 without recurrent disc herniation and no significant canal or neural foraminal compromise. Shallow broad-based central disc protrusion with an enhancing central annular fissure at L4-L5 and minor facet arthrosis without spinal canal or neural foraminal stenosis. Prior to that, lumbar spine x-ray was not done but the results are not available today. No significant degenerative changes associated with the bilateral sacroiliac and hip joints per x-ray imaging obtained today. Patient has significant tenderness in the projection of right sacroiliac joint. [facility] Medical History (Updated 01/19/24 @ 15:38 by José Miguel Machuca MD) Anemia POTS (postural orthostatic tachycardia syndrome) Bladder retention Anesthesia complication History of lumbar puncture Lumbar post-laminectomy syndrome Small fiber neuropathy Surgical History (Updated 12/24/23 @ 12:09 by Tracy eHrnandez RN) Hx of wisdom tooth extraction Hx of hysterectomy Hx of microdiscectomy (~11/22/20) Social History Are you a primary manager of care to a significant other at home: No Do you presently have visiting nurse or other home services: No Patient Tobacco Use Status: Never used Tobacco Review of Systems Const All systems reviewed & are unremarkable except as noted in HPI and below Assessment & Plan Assessment & Plan (1) Vertebrogenic low back pain: Code(s): M54.51 - Vertebrogenic low back pain (2) Postoperative infection: Code(s): T81.40XA - Infection following a procedure, unspecified, initial encounter Plan Plan of care as above. Observation of the CBC may lead to urgent diagnostic studies. Next appointment in person on 01/29/2024. Orders: Orders Complete Blood Count Auto Diff Today M54.51 - Vertebrogenic low back pain, T81.40XA - Infection following a procedure, unspecified, initial encounter Medications: New tramadol 50 mg PO Q6H 21 days PRN 84 tabs 1RF pain Patient Instructions: I here by testify that I spent 30 minutes in conversation with this patient as well as planning her care, organizing her note, and evaluating prior records and images. Telehealth Telehealth Location of provider rendering services: practice address Location of patient: address on file Patient Identification confirmed using: Name, : Yes Patient verbally consented to treatment: Yes Patient verbally consented to billing insurance company: Yes Patient informed of any privacy concerns related to visit: Yes Coding Level of Care Code Tele Est Pt Level 4 (08050) Diagnoses Vertebrogenic low back pain M54.51 Postoperative infection T81.40XA
== END 2024-01-19 16:03 | disposition home or self-care (01) ==
LOC: HO.PMC 15:28
PROVIDERS: PCP Internal Medicine; Visit Provider Anesthesiology
DX: M54.51 Vertebrogenic low back pain (principal); T81.40XA Infection following a procedure, unspecified, initial encounter
CPT/HCPCS: 99214

== ENCOUNTER → 2024-01-19 15:28 | Outpatient (BNVA) | payer OTHER, SELFPAY | PROVIDERS: PCP Internal Medicine; Visit Provider Anesthesiology ==

== ENCOUNTER 2024-01-20 10:56 | Outpatient (REF) | payer OTHER, SELFPAY ==
[2024-01-20 11:23] LABS: MANUAL DIFF FLAG NO
[2024-01-20 12:52] LABS: Basophils Percent Auto 0.7 % (0-2); Eosinophils Absolute Auto 0.1 X10*3/uL (0.0-0.4); Eosinophils Percent Auto 1.5 % (0-4); Hematocrit 38.3 % (37.0-47.0); Hemoglobin 12.4 g/dl (12.0-16.0); Imm Gran Abs Auto 0.01 X10*3/uL (0.00-0.03); Imm Gran Pct Auto 0.2 % (0.0-0.4); Lymphocytes Absolute Auto 1.8 X10*3/uL (1.2-4.9); Lymphocytes Percent Auto 39.5 % (20-40); Mean Corpuscular HGB Conc 32.4 g/dl (31.0-35.0); Mean Corpuscular Hemoglobin 29.3 pg (27.0-33.0); Mean Corpuscular Volume 90.5 fL (80.0-98.0); Mean Platelet Volume 11.2 fL (9.4-12.3); Monocytes Absolute Auto 0.4 X10*3/uL (0.1-1.2); Neutrophils Absolute Auto 2.2 x10*3/uL (2.0-8.3); Neutrophils Percent Auto 49.1 % (45-73); Platelet Count 233 X10*3/uL (160-400); Red Blood Count 4.23 X10*6/uL (4.20-5.50); Red Cell Distribution Width 12.5 % (11.0-16.0); White Blood Count 4.6 X10*3/uL (4.8-10.8)
== END 2024-01-20 10:57 | disposition home or self-care (01) ==
LOC: HO.LAB 10:56
PROVIDERS: Visit Provider Anesthesiology
DX: M54.51 Vertebrogenic low back pain (principal); T81.40XA Infection following a procedure, unspecified, initial encounter
CPT/HCPCS: 36415; 85025

== ENCOUNTER 2024-01-27 10:18 | Outpatient (REF) | payer OTHER, SELFPAY ==
[2024-01-27 10:43] LABS: MANUAL DIFF FLAG NO
[2024-01-27 12:36] LABS: Eosinophils Absolute Auto 0.1 X10*3/uL (0.0-0.4); Eosinophils Percent Auto 1.2 % (0-4); Hematocrit 39.1 % (37.0-47.0); Hemoglobin 12.7 g/dl (12.0-16.0); Imm Gran Abs Auto 0.01 X10*3/uL (0.00-0.03); Imm Gran Pct Auto 0.2 % (0.0-0.4); Lymphocytes Absolute Auto 1.7 X10*3/uL (1.2-4.9); Lymphocytes Percent Auto 41.6 % (20-40); Mean Corpuscular HGB Conc 32.5 g/dl (31.0-35.0); Mean Corpuscular Hemoglobin 29.3 pg (27.0-33.0); Mean Corpuscular Volume 90.1 fL (80.0-98.0); Mean Platelet Volume 11.2 fL (9.4-12.3); Monocytes Absolute Auto 0.4 X10*3/uL (0.1-1.2); Monocytes Percent Auto 8.9 % (2-11); Neutrophils Absolute Auto 1.9 x10*3/uL (2.0-8.3); Neutrophils Percent Auto 47.1 % (45-73); Platelet Count 232 X10*3/uL (160-400); Red Blood Count 4.34 X10*6/uL (4.20-5.50); Red Cell Distribution Width 12.5 % (11.0-16.0); White Blood Count 4.1 X10*3/uL (4.8-10.8)
== END 2024-01-27 10:19 | disposition home or self-care (01) ==
LOC: HO.LAB 10:18
PROVIDERS: PCP Internal Medicine; Visit Provider Anesthesiology
DX: T81.40XA Infection following a procedure, unspecified, initial encounter (principal); M54.51 Vertebrogenic low back pain
CPT/HCPCS: 36415; 85025

== ENCOUNTER 2024-01-29 09:27 | Outpatient (AMB) | payer OTHER, SELFPAY ==
--- NOTE | 2024-01-29 09:35 | A.OFFVIS_ITS ---
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 Reports pain 4/10. Allergies dexamethasone [From Decadron] Adverse Reaction (Severe, Verified 01/29/24 09:54) Unknown general anesthesia Adverse Reaction (Severe, Uncoded 12/24/23 12:10) vomiting/urinary retention narcotic pain meds Adverse Reaction (Severe, Uncoded 12/24/23 12:10) Vomiting HPI HPI Comments History of Present Illness Details Loyda is back in my office after the results of sequential CBCs were available to me. Her WBCs normal in range of 4.6-4.1 there is no left shift, therefore I can not suspect any infection after the procedure. The patient is doing fairly well with pain only 4/10. However she states that this pain prevents her from performing activities of daily living and job duties. She reports most of discomfort on the right side in the projection of the right i liac crest which makes me believe about possibility of cluneal nerve involvement in her pain syndrome. I explained to her Nevro SCS if she wants to consider her procedure to help her pain. We agreed that she will read the brochure and she will give me a call on whether or not she wants to go for trial of SCS Nevro. We would need to schedule her for psychological evaluation. Prior: [facility] on 12/26/2023. Immediately after procedure no pain when she is standing sitting and bending forward. Only minor discomfort in the lower back from incisions. The patient was given a note with explanation of the limitation of the activities after the procedure. 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 If she needs to receive any notes about her activities or job light duties they will be provided for her. The patient's dressing was removed, prepped with ChloraPrep, sutures were removed and sterile dressing was applied. No redness no swelling no pathological discharge no tenderness on palpation on the incision lines. Explanations were given about mobility daily activities and returned to work. Prior: very pleasant 43 years old female who is in my office today status post diagnostic 1. Medial branch block L2-L3 L4 does ramus L5 bilateral. The patient reports only minimal pain improvement after the procedure in the 1st 1-1/2 hours. Reports pain quickly came back to the baseline level at 2. hours after the procedure. With her attempt to perform the most painful maneuvers her pain exacerbated and became much higher than before the procedure even though the procedure was performed with bupivacaine longevity of the action of which would be at the 6 hours. Therefore cannot consider this procedure diagnostically positive for pain generator of this patient being facet joint arthritis. She previously medial branch block L3-L4 dorsal ramus L5 bilateral however she fell asleep after the procedure and the results were non conclusive. She had right L4-5 L5-S1 therapeutic epidural steroid injection transforaminal. She reported 2-3 days only of moderate pain relief after this procedure. She reports pain in the lumbar spine and sacral bone in the midline with radiation to the right posterior hip. She reports that she has pain in the right foot however she is adamant that this is not connected to the pain in the back. Last physical therapy she received in 2021 and she reported no pain relief from this procedure. She completed 12 sessions of physical therapy and continued home exercise program however without significant success. Germain 2 inhibitors and NSAIDs are not effective for her pain, patient reports no side effects on maximal doses however denies help with the pain. Prolonged and very careful discussion issued today with the history of evaluation. Today patient reported that prolonged standing and prolong sitting causes severe pain in her back. She reports that flexing forward non backwards as she previously stated causes more of a pain the back. She reports that most severe pain in the back is in the morning when she gets up from her bed and needs to flex herself forward to touch her feet or lease picker stuff from the ground. I suspected today that she has vertebra genicular pain. On the MRI of the lumbar spine she has Modic type changes which I will request to re-evaluate by Dr. Fierro however it seem to be that they are Modic type 1 and Modic type 2 changes.. Right SIJ steroid injection on 08/27/22 Patient reports 20% pain relief for less than a week. She continues to endorse axial and right sided lower back pain, worse with lumbar extension and supine positioning. Patient also reports right lateral hip and groin discomfort. She has been followed by her ObGyn provider for vaginal bleeding for one month and underwent endometrial biopsy last Friday. Patient also reports her uterus has increased in size since last MRI imaging per her ObGyn provider. Patient denies any fever, unintentional weight loss, malaise, dizziness, numbness or tingling, weakness, radiation of pain to lower extremities, bowel or bladder incontinence, or saddle anesthesia. Pelvic MRI results demonstrated physiologic changes seen within the adnexa. No suspicious abnormality seen. Patient reports she has follow up with ObGYN on 09/12/22 sacroiliac and hip xrays : showed no acute fracture or dislocation. The sacroiliac and hip joints are unremarkable. Mild degenerative changes are noted at the pubic symphysis. The bony pelvis is intact. Her lumbar spine xray on 04/03/22 was consistent with mild degenerative change of the L4-L5 and L5-S1 discs levels. PRIOR: Patient is a pleasant 41-year-old female who presents today for evaluation of low back pain. 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 Patient was referred to us by [employer] and this is Worker's Comp case, claim #[id number] and residential case manager is Volodymyr Faulkner . At the end of April, while dealing with a difficult preschool child, patient states she fell in the classroom on her right side and developed pain in her right lower back and right buttock and hip. Initially she reports, the pain was radiating to her left thigh anteriorly but has stopped 2 days after the fall. She denies any numbness or tingling. Patient reports previous back surgery L5-S1 microdiscectomy on 11/22/[address] Almonte at [facility]. She reports no improvement of back symptoms with PT during prolonged sitting, standing, or walking or changing positions. Patient has been managing her pain is healed and ice therapy, lidocaine patches, prednisone, Tylenol, ibuprofen, and has also tried 2 different muscle relaxants which she notes significant sensitivity due to drowsiness. She denies previous chiropractic manipulation, massage, acupuncture or TENS unit. Patient reports small fiber neuropathy which has been confirmed by lumbar puncture at [facility] in a biopsy at [facility]. She was evaluated by rheumatology about 3 years ago for a question of ankylosing spondylitis. Patient also have seen the hospital medical biller at [facility] and reports that multiple sclerosis has been ruled out. EMG and nerve conduction studies previously done at [facility]. Lumbar spine MRI was obtained on 05/27/2022 and showed postoperative and discogenic degenerative changes at L5-S1 without recurrent disc herniation and no significant canal or neural foraminal compromise. Shallow broad-based central disc protrusion with an enhancing central annular fissure at L4-L5 and minor facet arthrosis without spinal canal or neural foraminal stenosis. Prior to that, lumbar spine x-ray was not done but the results are not available today. No significant degenerative changes associated with the bilateral sacroiliac and hip joints per x-ray imaging obtained today. Patient has significant tenderness in the projection of right sacroiliac joint. [facility] Medical History (Updated 01/19/24 @ 15:38 by José Miguel Machuca MD) Anemia POTS (postural orthostatic tachycardia syndrome) Bladder retention Anesthesia complication History of lumbar puncture Lumbar post-laminectomy syndrome Small fiber neuropathy Surgical History (Updated 12/24/23 @ 12:09 by Tracy Hernandez RN) Hx of wisdom tooth extraction Hx of hysterectomy Hx of microdiscectomy (~11/22/20) Social History Are you a primary resident care supervisor to a significant other at home: No Do you presently have visiting nurse or other home services: No Patient Tobacco Use Status: Never used Tobacco Review of Systems Const All systems reviewed & are unremarkable except as noted in HPI and below ENT Reports Normal hearing present Neuro Reports Normal hearing present, Denies Abnormal speech present, Denies confusion and Denies Sensory deficit (Neuro) Psych Denies confusion Physical Exam Vital Signs: Last Vital Signs Pulse 74 01/29/24 09:54 Resp 14 01/29/24 09:54 BP 142/88 H 01/29/24 09:54 Pulse Ox 96 01/29/24 09:54 Oxygen Delivery Method Room Air 01/29/24 09:54 BMI result Body Mass Index 21.6 Const General: no acute distress; No confusion Orientation/consciousness: patient oriented x3 and No confusion Eyes General: appearance normal, both eyes and all related structures Pupils: Equal, round and reactive pupils present EOM: EOMs intact bilaterally Neck Neck: Yes full ROM Chest Chest palpation & inspection: normal inspection of the chest Resp Effort & Inspection: normal respiratory effort, able to speak in complete sentences, normal respiratory pattern, no audible wheezes and no cough Cardio Jugular venous distension: no JVD GI Inspection: Yes normal to inspection Back/Spine/Pelvis Other: Christopher test Gaenslen test, pelvic compression test and pelvic destruction test are all negative for sacroiliac joint pathology. Lateral rotation of the right hip negative for pain increase in the groin or in the hip. SLR is negative bilaterally. Tenderness on palpation of midline spinal region approximately at the level of L4-L5 and S1. Loading test is positive bilaterally and more on the right. Tenderness on palpation in the projection of the right iliac crest. Flexing forward and flexing backwards aggravates her pain. She cannot make the decision whether or not 1 of them aggravate her pain stronger than the other. She denies pelvic organ dysfunction. She denies Valsalva maneuver aggravating her pain. Neuro General: patient oriented x3, gait normal and No confusion Cranial nerves: Yes CN's II-XII intact bilaterally, Yes Equal, round and reactive pupils present, Yes Normal hearing present and Yes Ability to bilaterally elevate shoulders present Speech: No Abnormal speech present Gait exam (Neuro): Normal gait present Motor exam (neuro): 5/5 motor strength present throughout Sensory Exam: No Sensory deficit (Neuro) Extrem General: No pedal edema Psych Speech and movement: Normal speech and movement present Affect: normal affect Attitude: cooperative Thought process: Normal thought process present Thought content: Normal thought content present Insight: Good insight present (Psych) Judgement: Good judgement present (Psych) Assessment & Plan Assessment & Plan (1) Vertebrogenic low back pain: Code(s): M54.51 - Vertebrogenic low back pain (2) Postoperative infection: Code(s): T81.40XA - Infection following a procedure, unspecified, initial encounter Plan Plan of care as above. Nevro SCS is discussed. I would need to schedule this patient for psychological evaluation if she wants Nevro SCS trial after reading the brochure. Brochure and booklet were given to the patient. I might consider right cluneal nerve injection in the future if nothing else is helping the patient. Coding Level of Care Code Est Pt Level 3 (80824) Diagnoses Vertebrogenic low back pain M54.51 Postoperative infection T81.40XA
[2024-01-29 09:54] VITALS: BP 142/88; PULSE 74; RESP 14; O2SAT 96; BMI 21.6
== END 2024-01-29 10:14 | disposition home or self-care (01) ==
PROVIDERS: PCP Internal Medicine; Visit Provider Anesthesiology
DX: M54.51 Vertebrogenic low back pain (principal); T81.40XA Infection following a procedure, unspecified, initial encounter
CPT/HCPCS: 99213

== ENCOUNTER → 2024-01-29 09:27 | Outpatient (BNVA) | payer OTHER, SELFPAY | PROVIDERS: PCP Internal Medicine; Visit Provider Anesthesiology | DX: M54.51 Vertebrogenic low back pain (principal); T81.40XA Infection following a procedure, unspecified, initial encounter | CPT/HCPCS: 99212 ==

== ENCOUNTER → 2024-02-17 11:01 | Outpatient (BNVA) | payer OTHER, SELFPAY | PROVIDERS: PCP Internal Medicine; Visit Provider Physician Assistant Medical | DX: M54.17 Radiculopathy, lumbosacral region (principal); M25.551 Pain in right hip | CPT/HCPCS: 99213 ==